=== PATIENT | female | born 1945 | race Caucasian/White ===

== ENCOUNTER 2018-03-10 18:11 | Inpatient (IN) | payer MEDICARE, OTHER ==
[2018-03-10 19:18] LABS: Hemoglobin 15.5 g/dL (12.0-16.0); Mean Corpuscular HGB CONC 34.5 g/dL (32.0-36.0); Mean Corpuscular Hemoglobin 32.3 pg (27.0-31.0); Mean Corpuscular Volume 93.6 fL (78.0-98.0); Mean Platelet Volume 6.9 fL (7.4-10.4); Platelet Count 414 thou/uL (130-400); RBC Distribution Width 13.1 % (11.5-14.5); Red Blood Cell (RBC) Count 4.82 mill/uL (4.20-5.40); White Blood Cell (WBC) Count 18.6 thou/uL (4.8-10.8)
[2018-03-10 19:28] LABS: ALT (SGPT) 26 U/L (8-55); AST (SGOT) 20 U/L (5-34); Albumin 4.1 g/dL (3.4-4.8); Alkaline Phosphatase 81 U/L (40-150); Anion Gap 15 mmol/L (10-20); BUN (Urea Nitrogen) 54 mg/dL (9.8-20.1); CK (CPK) 29 U/L (29-168); Calc. Creatinine Clearance 0 mL/min (70-130); Calcium 10.3 mg/dL (7.8-10.44); Carbon Dioxide 28 mmol/L (23-31); Chloride 96 mmol/L (98-107); Estimated GFR-MDRD 28; Globulin 2.7 g/dL (2.4-3.5); Glucose 164 mg/dL (80-115); Potassium 3.6 mmol/L (3.5-5.1); Protein, Total 6.8 g/dL (6.0-8.3); Sodium 135 mmol/L (136-145)
[2018-03-10 19:35] LABS: Band 3 % (5-11); CKMB 1.4 ng/mL (0-6.6); Lymphocytes 8 % (21-51); MDiff Complete? YES; Monocytes 7 % (0-10); Myelocyte 1 % (0-0); Neutrophil 78 % (42-75); PLT Morphology Comment Appears Increased; RBC Morphology Normal; Reactive Lymphocytes 3 % (0-10)
--- NOTE | 2018-03-10 20:50 | RAD ---
FRONTAL VIEW CHEST: 03/10/18 INDICATION: Syncope. FINDINGS: There is no evidence of consolidation, effusion or pneumothorax. The cardiac silhouette is accentuate d with portable technique. Mild vascular calcification present. IMPRESSION: No focal consolidation. POS: [facility]
--- NOTE | 2018-03-10 20:52 | CT ---
CT HEAD NONCONTRAST: 03/10/18 INDICATION: Altered mental status with dizziness. Reference made to 02/24/18 exam. FINDINGS: No intracranial hemorrhage, mass effect or midline shift. There is mild chronic microvascular ischemi c disease. There is a stable cavitary lucency of the posterior left subinsula indicating sequela from chronic lacunar infarction. Mild mucosal thickening of the paranasal sinuses is present. IMPRESSION: 1. No acute intracranial hemorrhage or mass effect. 2. Mild chronic microvascular ischemic disease. POS: [facility]
[2018-03-10] MEDS ORDERED: Enoxaparin Sodium 60 MG/0.6 ML SYRINGE ONE (22:11)
[2018-03-10] MEDS ORDERED: Diltiazem HCl 125 MG, Admixture Fee 1 EACH in Sodium Chloride 0.9% 100 ML IVPB SCH (22:15)
[2018-03-10 23:37] LABS: Troponin I 0.016 ng/mL (< 0.028)
[2018-03-11] MEDS ORDERED: Ondansetron ODT 4 MG TAB SL PRN (00:22)
[2018-03-11] MEDS ORDERED: Ondansetron HCl/PF 4 MG/2 ML Vial IVP PRN ×2 (00:22→05:29)
[2018-03-11] MEDS ORDERED: Acetaminophen 325 MG TAB PO PRN ×2 (00:22→05:29)
[2018-03-11 01:41] LABS: Troponin I 0.027 ng/mL (< 0.028)
[2018-03-11] MEDS ORDERED: Ondansetron ODT 4 MG TAB PO PRN (05:29)
[2018-03-11] MEDS ORDERED: Diltiazem 125 MG in Sodium Chloride 0.9% 100 ML IVPB SCH (05:30)
--- NOTE | 2018-03-11 06:00 | HP ---
PRIMARY CARE PHYSICIAN: Dr. Michelle Avendaño. CHIEF COMPLAINT: Dizziness. HISTORY OF PRESENT ILLNESS: Ms. Millan is a pleasant 72-year-old female who presents to the emergenc y room, complaining of dizziness. The patient says that it started about 2 weeks ago and it has been off and on. She says that she has fallen as a result of dizziness twice. She would feel dizzy and off balance as well. She denies having any chest pain or shortness of breath, but as a result of her concerns, she came to the emergency room for evaluation and in the ER, she was found to be in atrial fibrillation with rapid ventricular response and she is being admitted for further recommendations. The patient denies any chest pain, no shortness of breath, no PND, no orthopnea. The patient has no known history of any heart problems. REVIEW OF SYSTEMS: All systems were reviewed and are negative except for that mentioned in the histo ry of present illness. PAST MEDICAL HISTORY: Significant for restless leg syndrome, Alzheimer disease, and hypertension. PAST SURGICAL HISTORY: She has had a , cholecystectomy, appendectomy, and tonsillectomy. ALLERGIES: PENICILLIN. SOCIAL HISTORY: She is , has one son. She lost a daughter to cancer. She denies any alcohol use. She denies any smoking. CODE STATUS: FULL CODE. FAMILY HISTORY: Significant for Alzheimer's. MEDICATIONS: Include benazepril/hydrochlorothiazide 20/12.5 once a day, prednisone 20 mg twice a day , meclizine 12.5 mg daily, amitriptyline 2 tablets daily, and dapsone. PHYSICAL EXAMINATION: GENERAL: She is alert and oriented x4. She appears to be in no acute distress, well-developed and w ell-nourished. VITAL SIGNS: Blood pressure was 120/60, heart rate initially was in the 160s, respiratory rate of 16 . She is afebrile. HEENT: Her pupils are equal, round, and reactive. Extraocular muscles are intact. Her sclerae are anicteric. Throat: No erythema, no exudates. NECK: No adenopathy, no bruits. LUNGS: Clear to auscultation. There is no wheezing, no rales. CARDIOVASCULAR: Heart rate is irregular. It is still slightly rapid. There were no murmurs, clicks , no rubs. ABDOMEN: Soft, it is nontender, nondistended. Positive for bowel sounds. No rebound, no guarding. EXTREMITIES: There is no clubbing, cyanosis, no edema. NEUROLOGIC: The exam is nonfocal. LABORATORY AND X-RAY FINDINGS: EKG: Atrial fibrillation with rapid ventricular response. There are no ST wave changes. Her white blood cell count was 18.6, hemoglobin 15.5, hematocrit is 45.1, plate let count is 414,000. D-dimer was elevated at 0.83. Sodium 137, potassium 3.6, chloride is 96, CO2 is 28, BUN of 54, creatinine 1.79, glucose is 164. Troponins were less than 0.020. TSH was normal a t 0.80. She had a CT scan of the brain and showed no acute intracranial hemorrhage or mass effect, c hronic microvascular changes. Chest x-ray was normal. ASSESSMENT AND PLAN: 1. This is a pleasant 72-year-old female who presents with intermittent dizziness and was found to b e in atrial fibrillation with rapid ventricular response. The atrial fibrillation is likely the caus e of her dizziness. However, posterior circulation cerebrovascular insufficiency cannot be entirely ruled out. However, her creatinine is elevated and her GFR is only in the 20s, which will preclude d oing a CT angiogram. For the plan regarding the atrial fibrillation, we will continue digoxin as mary erated as her blood pressure dropped on Cardizem. Consider full anticoagulation, which will need to be renally dosed. We will get an echocardiogram and consult Cardiology for further recommendations. 2. For the dizziness, once again, this is likely related to the atrial fibrillation. CT angiogram i s unobtainable at this time due to her renal function. Therefore, if her symptoms continue an MRI of the brain could be done to rule out a posterior circulation stroke. 3. Hypertension. Currently her blood pressure is on the lower side; therefore, we will hold her usu al antihypertensive medications and follow the trend. 4. Further recommendations to follow.
[2018-03-11] MEDS: Aspirin 81 mg Enteric Coated Tablet PO SCH (08:41)
--- NOTE | 2018-03-11 10:04 | NM ---
RADIONUCLIDE VENTILATION PERFUSION LUNG SCAN: History: Syncope. FINDINGS: Ventilation images show good uptake or radiotracer throughout each lung with patchy areas of airtrapp ing on the delayed images. Perfusion images show a single small subsegmental defect projecting over t he superior segment left lower lobe. IMPRESSION: Exam remains low probability for clinically significant pulmonary embolus. POS: [facility]
[2018-03-11] MEDS ORDERED: Enoxaparin Sodium 60 MG/0.6 ML SYRINGE SC SCH ×2 (11:25→11:30)
[2018-03-11] MEDS ORDERED: Sodium Chloride 0.9% 1,000 ML IV SCH (14:00)
[2018-03-11] MEDS ORDERED: Digoxin 0.5 MG/2 ML AMP SLOW IVP SCH (14:00)
--- NOTE | 2018-03-11 14:26 | CON ---
DATE OF CONSULTATION: 03/11/[address] Karthikeyan Tate' full consultation for details. HISTORY OF PRESENT ILLNESS: Briefly, Ms. Millan is a very pleasant 72-year-old woman who recently pr esented with atrial fibrillation with RVR. Main complaint was dizziness. She had had several falls, but no loss of consciousness. No previous history of atrial fibrillation. No chest pain or pressur e noted. PHYSICAL EXAMINATION: CARDIAC: Tachycardia, irregularly irregular. EXTREMITIES: No significant edema. IMPRESSION: New onset atrial fibrillation. RECOMMENDATIONS: She is currently on Cardizem 5 mg IV. We will increase to 7.5 mg IV per hour. We will give a p.o. dose of Cardizem. We will hold diuretic therapy. We will give her 500 mL bolus of fluid over 2 hours and give IV digoxin. Plan is rate control at this point. Duration of atrial fibr illation is unknown. Continue with Lovenox for now. Once her rate is better controlled, we will the n switch over to a novel oral anticoagulation agent.
--- NOTE | 2018-03-11 14:56 | CON-2 ---
DATE OF CONSULTATION: 03/11/2018 REASON FOR CONSULTATION: Atrial fibrillation with rapid ventricular response. HISTORY OF PRESENT ILLNESS: This is a 72-year-old female with a past medical history of Alzheimer's disease, hypertension and restless legs syndrome who presents to the ER with complaint of dizziness. The patient endorses history of 2 weeks' worth of transient dizziness. The patient has fallen 2 times during that time course. She describes the dizziness as the room spinning around her. She has not lost consciousness. She has not blacked out. She has not hit her head at any point. She estimates that she has had approximately 5- 6 episodes of dizziness over the last 2 weeks. During these dizzy spells, she denies any chest pain, shortness of breath, diaphoresis, palpitation. While being worked up in the emergency room, she was found to be in atrial flutter and then subsequently in AFib RVR. She has no significant cardiac history. No prior history of any CHF, cardiomyopathy or arrhythmia. Upon evaluation on telemetry, the patient denies any chest pain, palpitations or weakness despite her heart rate being in the 140 beats per minute range. In the ER, the patient received a loading dose of diltiazem 20 mg IV push followed by diltiazem drip at 5 mg per hour. She was anticoagulated on Lovenox approximately 1 mg/kg. She was also given 1 liter saline bolus and aspirin 325 mg. PAST MEDICAL HISTORY: 1. Alzheimer's disease. 2. Hypertension. 3. Restless legs syndrome. PAST SURGICAL HISTORY: 1. x1. 2. Cholecystectomy. 3. Appendectomy. 4. Tonsillectomy. SOCIAL HISTORY: She denies any alcohol, drug or smoking. FAMILY HISTORY: Significant for Alzheimer's, but no heart disease. REVIEW OF SYSTEMS: General: Denies fever or chills. No fatigue. HEENT: Denies nasal congestion. Denies sore throat. Cardiovascular: Denies chest pain. Denies palpitations. Pulmonary: Denies shortness of breath. Denies cough. Gastrointestinal: Denies nausea, vomiting, diarrhea. Denied abdominal pain. Genitourinary: Denies dysuria. Denies urinary frequency. Musculoskeletal: Denies joint pain. Denies muscle weakness. Skin: Denies rashes. Denies lesions. Psychiatric: Denies anxiety. Denies depression. PHYSICAL EXAMINATION: VITAL SIGNS: Temperature 97.6 degrees Fahrenheit, pulse of 138, respirations of 16, O2 sat is 92% on room air and blood pressure is 93/54. GENERAL: She is alert and oriented x4, in no distress. HEENT: Pupils equal, round and reactive to light and accommodation. NECK: Supple without lymphadenopathy. LUNGS: Clear to auscultation bilaterally. CARDIOVASCULAR: Heart rate is irregularly irregular and fast. ABDOMEN: Soft, nontender to palpation. No masses or distension are felt. EXTREMITIES: Show no clubbing or cyanosis. NEUROLOGIC: Cranial nerves II-XII intact. Normal sensation and strength. SKIN: No rashes. No lesions. PSYCHIATRIC: Appropriate. LABORATORY DATA: Significant for hemoglobin 15.5, hematocrit 45.1, platelets of 414,000. D-dimer of 0.83. Sodium 135, potassium 3.6, BUN of 54, creatinine of 1.79, troponin of 0.02, followed by 0.016, followed by 0.027. TSH of 0.8. IMAGING: Chest x-ray done in ER shows no acute process. Brain CT done in the ER shows no acute intracranial hemorrhage or mass effect with mild microvascular ischemic disease. Radionuclide ventilation perfusion lung scan shows low probability for clinically significant pulmonary embolus. Initial EKG on presentation to ER shows atrial fibrillation with a rate of approximately 130. Followup EKG shows atrial fibrillation with RVR with rate of approximately 150. ASSESSMENT AND PLAN: This is a 72-year-old female with 2-week history of dizziness, was found to be in atrial fibrillation with rapid ventricular response with no prior history of arrhythmia. Atrial fibrillation with rapid ventricular response. The patient's blood pressure is unable to tolerate further titration of the Cardizem drip. She became hypotensive with increase to 10 mg per hour of Cardizem. At this time, we will bolus her 500 mL normal saline followed by 0.25 mg of IV digoxin. We will continue her Cardizem drip. The patient is completely asymptomatic despite her rapid ventricular rate. She is currently anticoagulated therapeutically with Lovenox. We will wait for the results from a transthoracic echocardiogram. Discussion will need to be had with family and the patient regarding anticoagulation preference with history of falls. It is likely that the falls are cardiogenic in nature, but we are not for sure at this time. We will reassess after the bolus and the digoxin has been given. Continue to monitor on tele. Cardiology will follow. This consultation has been discussed with Dr. Jean Aguilar. [facility] HOSPITALDonavan
[2018-03-11] MEDS: Diltiazem 125 MG in Sodium Chloride 0.9% 100 ML IVPB SCH (15:20)
[2018-03-11] MEDS ORDERED: Amitriptyline HCl 10 MG TAB PO SCH (20:45)
[2018-03-11] MEDS: Enoxaparin Sodium 60 MG/0.6 ML SYRINGE SC SCH (20:56)
[2018-03-11] MEDS: Rosuvastatin 20 MG TAB PO SCH (20:56)
[2018-03-12 05:22] LABS: #Eosinphils 0.1 thou/uL (0.0-0.7); #Lymphocytes 2.5 thou/uL (1.20-3.40); #Monocytes 1.2 thou/uL (0.11-0.59); #Neutrophils 13.2 thou/uL (1.40-6.50); %Basophils 0.2 % (0.0-1.0); %Eosinophils 0.6 % (0.0-10.0); %Lymphocytes 14.7 % (21.0-51.0); %Monocytes 6.7 % (0.0-10.0); %Neutrophils 77.8 % (42.0-75.0); Hemoglobin 14.9 g/dL (12.0-16.0); Mean Corpuscular HGB CONC 34.2 g/dL (32.0-36.0); Mean Corpuscular Hemoglobin 32.6 pg (27.0-31.0); Mean Corpuscular Volume 95.5 fL (78.0-98.0); Mean Platelet Volume 7.2 fL (7.4-10.4); Platelet Count 357 thou/uL (130-400); RBC Distribution Width 13.4 % (11.5-14.5); Red Blood Cell (RBC) Count 4.56 mill/uL (4.20-5.40)
[2018-03-12 05:51] LABS: Anion Gap 18 mmol/L (10-20); BUN (Urea Nitrogen) 46 mg/dL (9.8-20.1); Calc. Creatinine Clearance 53 mL/min (70-130); Calcium 8.6 mg/dL (7.8-10.44); Carbon Dioxide 14 mmol/L (23-31); Cardiac Risk 5.2 (Less than 4.5); Chloride 106 mmol/L (98-107); Cholesterol 177 mg/dl (< 200 Desired); Estimated GFR-MDRD 57; Glucose 117 mg/dL (80-115); HDL Cholesterol 34 mg/dL (>60 Neg Risk); LDL Cholesterol, Calculated 67 mg/dL; Potassium 3.6 mmol/L (3.5-5.1); Sodium 134 mmol/L (136-145); Triglycerides 379 mg/dL (Less than 150)
[2018-03-12] MEDS: Aspirin 81 mg Enteric Coated Tablet PO SCH (08:23)
[2018-03-12] MEDS: Enoxaparin Sodium 60 MG/0.6 ML SYRINGE SC SCH ×2 (08:23→21:08)
[2018-03-12] MEDS ORDERED: PROVENTIL INHALER 6.7 G (200 INHALATIONS) INH PRN (10:11)
[2018-03-12] MEDS ORDERED: Amitriptyline HCl 10 MG TAB PO PRN (10:11)
[2018-03-12] MEDS: Dronedarone HCl 400 MG TAB PO SCH (16:09)
[2018-03-12] MEDS: Rosuvastatin 20 MG TAB PO SCH (21:08)
[2018-03-12] MEDS: Diltiazem 125 MG in Sodium Chloride 0.9% 100 ML IVPB SCH (21:09)
[2018-03-13 07:32] LABS: #Basophils 0.1 thou/uL (0.0-0.2); #Lymphocytes 2.3 thou/uL (1.20-3.40); #Monocytes 1.1 thou/uL (0.11-0.59); #Neutrophils 16.1 thou/uL (1.40-6.50); %Basophils 0.5 % (0.0-1.0); %Eosinophils 0.2 % (0.0-10.0); %Lymphocytes 11.6 % (21.0-51.0); %Monocytes 5.4 % (0.0-10.0); %Neutrophils 82.3 % (42.0-75.0); Hemoglobin 14.4 g/dL (12.0-16.0); Mean Corpuscular HGB CONC 34.1 g/dL (32.0-36.0); Mean Corpuscular Hemoglobin 32.6 pg (27.0-31.0); Mean Corpuscular Volume 95.5 fL (78.0-98.0); Mean Platelet Volume 7.7 fL (7.4-10.4); Platelet Count 291 thou/uL (130-400); RBC Distribution Width 13.7 % (11.5-14.5); Red Blood Cell (RBC) Count 4.43 mill/uL (4.20-5.40); White Blood Cell (WBC) Count 19.6 thou/uL (4.8-10.8)
[2018-03-13 07:51] LABS: Anion Gap 17 mmol/L (10-20); BUN (Urea Nitrogen) 50 mg/dL (9.8-20.1); Calc. Creatinine Clearance 39 mL/min (70-130); Calcium 9.1 mg/dL (7.8-10.44); Carbon Dioxide 16 mmol/L (23-31); Chloride 107 mmol/L (98-107); Estimated GFR-MDRD 41; Glucose 120 mg/dL (80-115); Potassium 3.5 mmol/L (3.5-5.1); Sodium 136 mmol/L (136-145)
--- NOTE | 2018-03-13 08:07 | CON ---
DATE OF CONSULTATION: 03/12/2018 ELECTROPHYSIOLOGY CONSULTATION REQUESTING PHYSICIAN: Dr. Jean Aguilar REASON FOR CONSULTATION: Atrial fibrillation with RVR. HISTORY OF PRESENT ILLNESS: Ms. Millan is a 72-year-old woman with a history significant for Alzheim er's disease, hypertension, restless legs syndrome, who presented to the emergency room yesterday rep orting dizziness. She has had 2 weeks of intermittent dizziness and has had 2 falls during that time span. She does describe the dizziness as the room spinning sensation. She denies any true syncopal episodes of passing out. She denies any associated chest pain, pressure, shortness of breath, diaph oresis or heart racing and palpitations. When she presented to the emergency room, she was placed on monitor and was found to be in an atypical flutter. When she presented to the emergency room, she w as placed on telemetry and was found to be in atypical flutter with RVR with ventricular rate, averag ing 130 beats per minute. She received a loading dose to 20 mg IV diltiazem with initiation of low d ose drip at 5 mg per hour. She is receiving subcutaneous anticoagulation with a weight-based Lovenox . She is also on a full strength aspirin. Currently, Ms. Millan denies any heart racing, palpitations, chest pain, pressure, or does have some mild dizziness. PAST MEDICAL HISTORY: Alzheimer's disease, hypertension, and restless legs syndrome. PAST SURGICAL HISTORY: , cholecystectomy, appendectomy, and tonsillectomy. SOCIAL HISTORY: Negative for alcohol, drug or tobacco. FAMILY HISTORY: Positive for Alzheimer's. Negative for sudden cardiac or early onset of coron gaby artery disease to the best of her recollection. HOME MEDICATIONS: Xanax 0.25 mg p.o. b.i.d., meclizine 6.25 mg q.8 hours as needed, Lotensin 1 tab d aily, amitriptyline 10 mg p.o. at bedtime, dapsone 75 mg p.o. t.i.d., Proventil HFA 2 puffs p.o. as n eeded, and prednisone 20 mg p.o. b.i.d. PHYSICAL EXAMINATION: VITAL SIGNS: Most recent vital signs; 98.4, heart rate is 130, respirations 20, oxygen is 96% on shaun m air, blood pressure 118/69, oxygen is 95% on room air. GENERAL: The patient is alert and oriented, in no apparent distress. HEENT: Pupils are equal, round, reactive and accommodate to light. Sclerae are anicteric. NECK: Supple, without jugular venous distention. LUNGS: Clear to auscultation bilaterally. Heart rate is irregularly irregular and rapid. PMI is no ndisplaced. ABDOMEN: Soft, nontender, without palpable masses. Hepatojugular reflux is negative. EXTREMITIES: Warm and dry to touch without clubbing, cyanosis or edema. NEUROLOGIC: Exam is grossly intact and nonfocal. Gait was not assessed. LABORATORY DATA AND IMAGING DATA: Recent laboratory; WBC 17.0, hemoglobin 14.9, hematocrit 43.5, peri telet count is 357. Chemistry: Sodium 134, potassium 3.6, BUN is 46, creatinine 0.96. Liver enzyme s are within normal limits. TSH is 0.8. Telemetry and EKG; patient is in atypical atrial flutter with RVR. IMPRESSION: 1. Atrial flutter with rapid ventricular response. 2. Transient hypotension with low dose Cardizem for rate control. 3. Anticoagulation on Lovenox. 4. Elevated CHADS VASC score of 3 on the basis of female gender, advancing age and hypertension. Or al anticoagulation is indicated. 5. Recent falls with associated dizziness likely related to her RVR. RECOMMENDATIONS: Recommend starting Multaq for antiarrhythmic therapy and continue diltiazem for rat e control. Oral anticoagulation is indicated by her elevated CHADS VASC score and hopefully antiarrh ythmic therapy will prevent further RVR episodes which are likely the cause of her dizziness and subs equent falls. That being said, atrial fibrillation does not come without risks of bleeding complica tions. Recommend Eliquis 5 mg p.o. b.i.d. when is stopped. Ultimately, we will be scheduling Ms. Millan for an outpatient ablation on a complex day in the future. All questions were answe red. The patient voices understanding. Risks, benefits, and alternative treatments were discussed a s well. This consultation has been discussed with Dr. Aguilar.
[2018-03-13] MEDS: Dronedarone HCl 400 MG TAB PO SCH ×2 (09:17→17:27)
[2018-03-13] MEDS: Aspirin 81 mg Enteric Coated Tablet PO SCH (09:17)
[2018-03-13] MEDS: Enoxaparin Sodium 60 MG/0.6 ML SYRINGE SC SCH (09:23)
[2018-03-13] MEDS ORDERED: Iopamidol 370 76% 100 ML VIAL ONE (12:50)
[2018-03-13] MEDS ORDERED: ALPRAZolam 0.25 MG TAB PO PRN (14:44)
--- NOTE | 2018-03-13 14:55 | PRG ---
DATE OF SERVICE: 03/11/2018 SUBJECTIVE: The patient today feels quite well. She has no complaints. She has no symptoms at all from her persistent tachycardia. OBJECTIVE: VITAL SIGNS: Temperature is 98.5, pulse 132, respirations 17, O2 sat 95% on room air, and BP 103/60. GENERAL APPEARANCE: Age appropriate female who looks perfectly healthy. She is in no distress. HEENT: ROHIT. NECK: Supple and symmetric. HEART: Tachycardic but without murmur. LUNGS: Clear bilaterally. ABDOMEN: Soft, nontender. EXTREMITIES: Warm and dry. LABORATORY DATA: White count 17.0, hemoglobin 14.9, platelets 357,000. Sodium 134, potassium 3.6, c hloride 106, CO2 14, BUN 46, creatinine 0.96. Triglycerides were 379, cholesterol 177, LDL 67, HDL 3 4. IMPRESSION AND PLAN: 1. Atrial fibrillation with rapid ventricular response. The patient failed to respond to Cardizem a nd has had some issues with her blood pressure. She has required a fair amount of fluids to maintain the blood pressure. She has no evidence of volume overload. She has had digoxin added to the regim en and that did not change her rate at all. Subsequently, Dr. Knox has been consulted. He has added Multaq with anticipation of an outpatient ablation. Thus far, the patient remains persistently tach ycardic and fortunately is tolerating it amazingly well. I had a long conversation with the patient and her daughter regarding the scenario. 2. Leukocytosis. 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 3. Dizziness, likely related to atrial fibrillation with rapid ventricular response. 4. Hypertension, stable. 5. Mild dementia. The patient is enormously pleasant.
--- NOTE | 2018-03-13 15:01 | PRG ---
DATE OF SERVICE: 03/13/2018 SUBJECTIVE: The patient continues to feel perfectly well today. She continues to be fairly oblivious symptomatically to the tachycardia that persists. She has been made n.p.o. this morning for possible ablation and her only concern is that she is not able to eat. OBJECTIVE: VITAL SIGNS: Temperature is 98.3, pulse 130, respirations 18, O2 sat 94%. GENERAL APPEARANCE: Age appropriate female in no distress, awake, alert, pleasant. HEART: Tachycardic, sounds regular presently. LUNGS: Clear to auscultation bilaterally. ABDOMEN: Soft, nontender, nondistended, positive bowel sounds, no masses, no organomegaly. EXTREMITIES: Have no edema. IMPRESSION AND PLAN: 1. Atrial fibrillation, unresponsive to Cardizem, digoxin and so far Multaq. My understanding is the plan is to go forward with the ablation while she is here, we will defer to Cardiology and EP. 2. Leukocytosis without evidence of infection, likely due to oral steroids. 3. Mild dementia. Stable. Patient is very pleasant. 4. Hypertension. The patient has actually had her medications held primarily because of her relative hypotension with the calcium channel blockers. MTDD
[2018-03-13] MEDS ORDERED: Sodium Chloride 0.9% 500 ML IVPB SCH (15:30)
[2018-03-13] MEDS: Sodium Chloride 0.9% 1,000 ML IV SCH (15:40)
--- NOTE | 2018-03-13 16:23 | CT ---
CT ANGIOGRAM OF THE CHEST: 03/13/18 HISTORY: Possible right atrial mass noted on cardiac echo. COMPARISON: None. TECHNIQUE: CT angiogram of the chest is performed in the axial plane. Three dimensional reformatted images are s ubmitted for interpretation. FINDINGS: Trachea and central bronchi are patent. No suspicious masses or consolidation. No pleural effusion. N o pneumothorax. There are no lytic or blastic lesions in the osseous structures. There is no mediasti nal mass, lymphadenopathy, or hematoma. Heart size is within normal limits. No pericardial effusion. The thoracic aorta and upper abdominal aorta have an overall normal caliber. No periaortic fat strand ing. The visualized great vessels of the neck and upper abdominal mesenteric vessels are unremarkable . There is reflux of contrast into the inferior vena cava. There is a filling defect in the right atr ium, measuring 2.9 cm craniocaudal x 3.2 cm mediolateral x 3.8 cm anterior posterior. Given the abund ance of contrast in the right atrium, additional characterization of this filling defect cannot be ma de. Cardiac MRI may be beneficial. There is adequate contrast opacification of the pulmonary arterial system to the level of the segmental arteries. No filling defect to suggest thromboembolism. IMPRESSION: Filling defect in the right atrium. based on the current exam, it cannot be determined if this is a s olid neoplasm versus a thrombus. There is no evidence of a pulmonary artery embolism. There does appe ar to be a component of right heart failure with reflux of contrast into the inferior vena cava. POS: [facility]
[2018-03-13] MEDS ORDERED: Communication Order-Pharmacy FS ONE (16:56)
--- NOTE | 2018-03-13 17:05 | PQF ---
CLINICAL DOCUMENTATION IMPROVEMENT CLARIFICATION FORM: ICD-10 Updated PLEASE DO AN ADDENDUM TO THE PROGRESS NOTE WITH ANY DOCUMENTATION UPDATES OR ADDITIONS AND CARRY THROUGH TO DC SUMMARY. THANK YOU. DATE: 03/13/18; 03/14/18; 03/18/18 ATTN: Dr. Ceballos / DR. REINA Please exercise your independent, professional judgment in responding to the clarification form. Clinical indicators are provided on the bottom of this form for your review Please check appropriate box(s): [ ] Acute Renal Failure (ARF) / Acute Kidney Injury (GWENDOLYN) [ ] Acute on Chronic Renal Failure please specify Stage of CKD [ ] CKD without ARF/GWENDOLYN please specify Stage of CKD [ ] Other diagnosis [ x ] Unable to determine In addition, please specify: Present on Admission (POA): [ ] Yes [ ] No [ ] Unable to determine For continuity of documentation, please document condition throughout progress notes and discharge summary. Thank You. CLINICAL INDICATORS - SIGNS / SYMPTOMS/ LABS are present in the medical record: H&P: CREATININE 1.79 HER CREATININE IS ELEVATED AND HER GFR IS ONLY IN THE 20S 03/10 03/12 03/13 LABS: CREATININE 1.79 0.96 1.29 ESTIMATED GFR 28 57 41 RISKS: H&P 03/11: HX ALZHEIMER'S DISEASE. HTN. PN 03/13: ATRIAL FIBRILLATION. HYPERTENSION . PT HAS ACTUALLY HAD HER MEDICATIONS HELD PRIMARILY BECAUSE OF HER RELATIVE HYPOTENSION WITH THE CALCIUM CHANNEL BLOCKERS. TREATMENTS: ORDER: BMP 03/12. 03/13 CPOE 03/13: NS IV GIVE 500CC BOLUS THEN 150 ML / HR Thank you, Gina (This form is maintained as a part of the permanent medical record) 2015 [employer]. All Rights Reserved Gina Ramos RN, BSN [email or web address] Office: [phone] [facility]
[2018-03-13 17:58] LABS: Bilirubin Negative (Negative); Blood, Urine Negative (Negative); Clarity CLEAR (Clear); Glucose, Urine (Dipstick) Negative (Negative); Leukocyte Negative (Negative); Nitrite Negative (Negative); Protein, Urine (Dipstick) Negative (Neg-Trace); pH, Urine 5.5 (5.0-9.0)
[2018-03-13 18:01] LABS: Bacteria/HPF None Seen HPF (None Seen); Hyaline Casts/LPF 0-3 HYALINE CAST LPF (0-3 Hyaline); Pathc Cast-AUWi Flag 0.87 (0-2.49); RBC/HPF 0-3 HPF (0-3); Specific Gravity, Urine Greater than 1.060 (1.002-1.036); Squamous Epithelial 0-3 HPF (0-3)
--- NOTE | 2018-03-13 18:35 | PDOC.CTH ---
Cardiology Progress Note - Subjective EP progress note: Patient seen and evaluated. No new cardiac concerns or complaints. Continues to have occasional palpitations and shortness of breath. otherwise feels well despite heart racing. - Objective Vital Signs Temp Pulse Resp BP BP Pulse Ox 03/13/18 16:45 98.4 F 124 H 18 134/65 03/13/18 12:00 97.5 F L 97 18 120/84 97 03/13/18 08:02 97.2 F L 133 H 20 03/13/18 07:50 97.2 F L 133 H 20 109/72 95 Weight 135 lb 11.2 oz 03/12/18 03/13/18 03/14/18 06:59 06:59 06:59 Intake Total 1894.2 722 500 Balance 1894.2 722 500 - Physical Examination General/Neuro: alert & oriented x3, NAD Neck: carotid US brisk, no JVD present Lungs: CTA, unlabored respirations Abdomen: no HSM, NT/ND - Telemetry Telemetry Rhythm: SVT vs Atrial tach - Labs Result Diagrams: 03/13/18 07:13 03/13/18 07:13 Troponin/CKMB CK-MB (CK-2) 1.4 ng/mL (0-6.6) 03/10/18 18:54 Troponin I 0.027 ng/mL (< 0.028) 03/11/18 01:09 - Assessment/Plan 1. SVT (likely AVNRT or possibly atrial tachycardia). Not atrial flutter/fib. sustaining 125-130 2. Syncope and collapse- story seems to vary on this but today she does say she blacked out for 5 seconds, which is supported by family. 3. Transient hypotension with increased doses of diltiazem gtt. 4. 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 Normal LVEF >65% by TTE 03/12/18 Dr dickson reviewed TTE which showed severely abnormal findings. Theses were discussed with Dr. Aguilar. CT angio would be helpful for further evaluation but will be difficult with her tachycardia. Not an ablative candidate with right atrial mass. Continue medical management and rate control as tolerated. Can rediscuss ablation at a later date if intracardiac RA mass is resolved.
[2018-03-13] MEDS ORDERED: predniSONE 20 MG TAB PO SCH (21:00)
[2018-03-13] MEDS: Diltiazem 125 MG in Sodium Chloride 0.9% 100 ML IVPB SCH (21:09)
[2018-03-13] MEDS: Rosuvastatin 20 MG TAB PO SCH (21:11)
--- NOTE | 2018-03-13 21:45 | CON ---
DATE OF CONSULTATION: 03/13/2018 HISTORY OF PRESENT ILLNESS: A 72-year-old female admitted about 3 days ago for dizziness and atrial fibrillation with RVR and then supraventricular tachycardia. Her past medical history is negative fo r any cardiac disease, but she does have a history of hypertension. Since admission, she was noted t o have some renal insufficiency initially with a creatinine of 1.7 that has decreased some although s he did receive a contrast load today. She had a cardiac echo showing a 2.5 x 5 cm right atrial mass that was mobile and a subsequent CT scan of the chest and upper abdomen demonstrating the mass. The inferior vena cava did not appear to be involved with this mass and the upper portion of the kidneys was visualized as well as the left renal vein. The patient has had no indwelling central venous cath eters. She has had no recent hospitalizations. PAST SURGICAL HISTORY: Significant for cholecystectomy, appendectomy, and . PAST MEDICAL HISTORY: Otherwise significant for mucous membrane pemphigus about 1 month ago for whic h she was started on prednisone therapy with some improvement in her source and she continues to use the prednisone. She also has history of some dementia for which she has been taking some over the [facility] medicine for that. She has a history of restless leg syndrome. SOCIAL HISTORY: She has never smoked. She is , has one son. She is a nondrinker. She is ac companied by her sister and today. MEDICATIONS: At home include Xanax 0.25 b.i.d. p.r.n., meclizine p.r.n. dizziness, Lotensin HCTZ one tablet daily, Elavil 10 at bedtime, dapsone 75 mg t.i.d., prednisone 20 b.i.d. ALLERGIES: PENICILLIN. PHYSICAL EXAMINATION: GENERAL: Alert and cooperative lady with some memory deficit. She relies on her to answer s ome questions. VITAL SIGNS: Height 5 feet 1 inch, weight 135. NECK: No carotid bruits, no adenopathy. CARDIAC: Rapid heart rate. No murmurs. LUNGS: Clear to auscultation. ABDOMEN: Slightly protuberant, unable to palpate masses. EXTREMITIES: She has palpable femoral, popliteal, and dorsalis pedis pulses. She has some ankle bob ma, but no pretibial edema. Motor strength is intact throughout. 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 She has had a nuclear pulmonary scan does not suggest pulmona ry embolus. There is no evidence that this is a thrombus from a renal carcinoma since it is isolated to the right atrium with no thrombus extending into the vena cava. She has a remarkably little calc ium in her aortic and other major arterial branches with only minimal calcification seen in the right and LAD. Plan at this time is for resection of her myxoma and informed consent has been obtained fo r surgery tomorrow.
[2018-03-14] MEDS: Sodium Chloride 0.9% 1,000 ML IV SCH ×3 (00:23→12:19)
--- NOTE | 2018-03-14 06:24 | EKG ---
Test Reason : Blood Pressure : / mmHG Vent. Rate : 120 BPM Atrial Rate : 120 BPM P-R Int : 294 ms QRS Dur : 088 ms QT Int : 304 ms P-R-T Axes : 057 -25 248 degrees QTc Int : 429 ms Sinus tachycardia with 1st degree A-V block vs. A Flutter with 2:1 block Possible Left atrial enlargement Abnormal ECG When compared with ECG of 10-MAR-2018 21:35, (Unconfirmed) Sinus rhythm vs A flutter with 2:1 block has replaced Atrial fibrillation Minimal criteria for Anterior infarct are no longer Present Confirmed by BRUNO BURLESON ([id number]) on 03/14/2018 6:23:46 AM Referred By: KELLI Confirmed By:BRUNO BURLESON
[2018-03-14] MEDS ORDERED: Albumin 5% 500 ML ONE (06:27)
[2018-03-14] MEDS ORDERED: Fentanyl 250 MCG/5 ML VIAL ONE (06:36)
[2018-03-14] MEDS ORDERED: Phenylephrine HCL 10 MG/ML VIAL ONE (06:37)
[2018-03-14] MEDS ORDERED: Vecuronium 10 MG VIAL ONE ×2 (06:37→14:46)
[2018-03-14] MEDS ORDERED: Dexmedetomidine 200 MCG/2 ML VIAL ONE (06:37)
[2018-03-14] MEDS ORDERED: Midazolam HCl 5 mg/5 ml Vial ONE (06:37)
[2018-03-14] MEDS ORDERED: Heparin 10,000 UNITS/1 ML VIAL 30,000 UNITS in Sodium Chloride 0.9% 1,000 ML FS SCH (06:45)
[2018-03-14] MEDS ORDERED: Clindamycin/D5W 900 mg/50 ml Premix Bag ONE (07:24)
[2018-03-14] MEDS ORDERED: Levofloxacin 500 mg/D5W 100 ml Premix Bag ONE (07:24)
--- NOTE | 2018-03-14 08:49 | PRG ---
DATE OF SERVICE: 03/13/2018 HISTORY OF PRESENT ILLNESS: Ms. Millan symptomatically is doing well. No cardiac complaints. Blood pressure appears stable. Heart rate did decrease in the low 120s. She was seen and evaluated by Dr Sourav Rand who feels she does have atrial tachycardia versus SVT. She had an echo performed yesterday that showed a large right atrial mass of unknown etiology. Coral p is in progress. PHYSICAL EXAMINATION: VITAL SIGNS: Blood pressure 120/84, pulse 97, temperature 97.5. LUNGS: Clear to auscultation. CARDIOVASCULAR: Tachycardic, regular rate. ABDOMEN: Soft, nontender, nondistended. EXTREMITIES: No edema. ASSESSMENT AND PLAN: 1. Supraventricular tachycardia. 2. Presyncope. 3. Right atrial mass. RECOMMENDATIONS: I had a long discussion with Ms. Millan as well as her sister. Her was not present. I am concerned about this right atrial mass of unknown etiology. There is calcification p resent along the mass which may be consistent with a chronic mass or tumor. We will recommend a CT s can of her chest to assess for PE. May also consider lower extremity duplex. She has been covered w [employer] since her admission. At this point, we would defer EP study due to the mass. I have als o discussed case with Dr. Manas Tai who will assist in her care.
--- NOTE | 2018-03-14 11:02 | OP ---
DATE OF PROCEDURE: 03/14/2018 PREOPERATIVE DIAGNOSIS: Right atrial myxoma. POSTOPERATIVE DIAGNOSIS: Right atrial myxoma. PROCEDURE: Excision right atrial myxoma and patch right atrial septum with about a 2 square cm bovin e pericardial patch. SURGEON: Louis Tai M.D. SWINE EXTENSION FIELD SPECIALIST: Dr. Dany Fowler TRANSFUSION: Two units of packed red cells. PROCEDURE IN DETAIL: After adequate anesthesia had been obtained, the patient was prepped and draped . A triple lumen CVP was placed in the right femoral vein and the left common femoral vein was expos ed through a transverse incision while a median sternotomy was performed. After opening the sternum, the patient was heparinized, the aorta cannulated through 2 pursestring sutures and then a 24 venous cannula was placed up through the left femoral vein using a C-arm to ensure that it did not enter th e right atrium. Following completion of this, the superior vena cava was cannulated following which cardiopulmonary bypass was instituted. The aorta was cross-clamped and a liter of cold blood cardiop legic given through the aortic root. While this was being done, the right atrium was opened. A clam p had been placed across the inferior vena cava. Large myxoma was seen prolapsing into the right nile tricle. The tumor was enucleated out of the right ventricle and a 4 x 4 sponge was placed and the tr icuspid valve to prevent any embolic material from being removed. Following this, the left atrial my xoma was too large to work around and so it was amputated x2 to be able to visualize the broad based tumor at the septum. This was then excised with the septum, following which a running 4-0 Prolene balderas ture was used to secure a patch. Following this, a Valsalva maneuver demonstrated no leak around the patch. Atrium was closed with a double layer 5-0 Prolene suture. Following completion of this, the base of the left atrial appendage was oversewn. Following this, the cross-clamp was removed after d eairing maneuvers and the patient was fully rewarmed. Temporary atrial and ventricular pacing wires were placed and utilized initially. Cannulation sites were repaired after removal of the 3 cannulas. Following this, mediastinal drains x2 were placed and the sternum was reapproximated with #7 interr upted wire after protamine had been given. Subcutaneous tissue and skin were closed in layers using vancomycin paste on the sternal edges, platelet-enriched blood, and platelet-poor plasma.
[2018-03-14] MEDS ORDERED: Post-Op Insulin Drip Protocol IVPB ONE (11:49)
[2018-03-14] MEDS ORDERED: Fentanyl 100 MCG/2 ML VIAL SLOW IVP PRN ×2 (11:49)
[2018-03-14] MEDS ORDERED: Bisacodyl 5 MG TAB PO PRN (11:49)
[2018-03-14] MEDS ORDERED: Promethazine HCl 25 MG/ML VIAL IM PRN (11:49)
[2018-03-14] MEDS ORDERED: Hetastarch 6% 500 ML 500 ML IVPB PRN (11:49)
[2018-03-14] MEDS ORDERED: Bisacodyl 10 MG SUPP PR PRN (11:49)
[2018-03-14] MEDS ORDERED: Nitroglycerin 50 MG/250 ML BOT 250 ML IVPB PRN (11:49)
[2018-03-14] MEDS ORDERED: Mag-Al 1200 mg/1200 mg/30 ML UDCUP PO PRN (11:49)
[2018-03-14] MEDS ORDERED: Acetaminophen 325 MG TAB PO PRN (11:49)
[2018-03-14] MEDS ORDERED: hydrALAZINE 20 MG/ML VIAL SLOW IVP PRN (11:49)
[2018-03-14] MEDS ORDERED: DOPamine 400 MG/D5W 250 ML 250 ML IVPB PRN (11:49)
[2018-03-14] MEDS ORDERED: Ondansetron HCl/PF 4 MG/2 ML Vial IVP PRN (11:49)
[2018-03-14] MEDS ORDERED: Guaifenesin DM 100-10/5 ML UDCUP PO PRN (11:49)
[2018-03-14] MEDS ORDERED: HYDROcodone/Acetaminophen 5/325 mg Tablet PO PRN (11:49)
[2018-03-14] MEDS ORDERED: Phenylephrine 10 MG/NS 250 ML 250 ML IVPB PRN (11:49)
[2018-03-14 11:52] LABS: pH, Arterial 7.44 (7.35-7.45)
[2018-03-14 11:53] LABS: ALV-art Gradient 142.175 (0-20); Actual Bicarbonate (HCO3a) 14.9 mEq/L (22-28); Base Excess (BEa) -7.6 mEq/L (-2.0 to +3.0); CO2 Tension 22.5 mmHg (35.0-45.0); Calcium, Ionized 1.2 mmol/L (1.12-1.30); Carboxyhemoglobin (COHb) 1.2 gm% (0.0-3.0); Hemoglobin (Hb) 11.2 g/dL (12.0-16.0); O2 Tension (PaO2) 186.2 mmHg (> 70.0); Potassium - ABG Lab 3.6 mmol/L (3.70-5.30); Puncture Site ALINE
[2018-03-14] MEDS ORDERED: Dextrose 5% in Water 1,000 ML IV PRN (11:55)
[2018-03-14] MEDS ORDERED: Dextrose 50% Abboject 50 ML SYRINGE SLOW IVP PRN (11:55)
[2018-03-14] MEDS ORDERED: Insulin Regular 300 UNITS/3 ML VIAL SC PRN (11:55)
[2018-03-14 12:08] LABS: Anion Gap 14 mmol/L (10-20); BUN (Urea Nitrogen) 29 mg/dL (9.8-20.1); Calc. Creatinine Clearance 72 mL/min (70-130); Carbon Dioxide 16 mmol/L (23-31); Chloride 114 mmol/L (98-107); Estimated GFR-MDRD 81; Glucose 177 mg/dL (80-115); Potassium 3.9 mmol/L (3.5-5.1); Sodium 140 mmol/L (136-145)
[2018-03-14 12:16] LABS: Hemoglobin 10.5 g/dL (12.0-16.0); Mean Corpuscular HGB CONC 33.8 g/dL (32.0-36.0); Mean Corpuscular Hemoglobin 32.1 pg (27.0-31.0); Mean Corpuscular Volume 94.8 fL (78.0-98.0); Mean Platelet Volume 7.6 fL (7.4-10.4); Platelet Count 110 thou/uL (130-400); RBC Distribution Width 14.6 % (11.5-14.5); Red Blood Cell (RBC) Count 3.28 mill/uL (4.20-5.40); White Blood Cell (WBC) Count 22.6 thou/uL (4.8-10.8)
[2018-03-14] MEDS: Dronedarone HCl 400 MG TAB PO SCH (12:17)
[2018-03-14 12:18] LABS: INR-International Normal Ratio 1.5; PTT 33.3 SEC (22.9-36.1); Prothrombin Time 18.3 SEC (12.0-14.7)
[2018-03-14] MEDS: Hydrocortisone Sod Succ/PF 100 mg/2 ml Vial IVP SCH ×2 (12:20→20:11)
[2018-03-14 12:41] LABS: Band 18 % (5-11); Lymphocytes 8 % (21-51); MDiff Complete? YES; Metamyelocyte 1 % (0-0); Monocytes 2 % (0-10); Neutrophil 71 % (42-75); PLT Morphology Comment Appears Decreased; Polychromasia SLIGHT = 2-3 cells (100X) (0-2/hpf)
--- NOTE | 2018-03-14 13:26 | RAD ---
PORTABLE CHEST 1 VIEW: Date: 03/14/18 Time: 1131 hours HISTORY: Postop open heart surgery. FINDINGS/IMPRESSION: Comparison made with exam of 02/24/18. Interval changes of median sternotomy is seen. There is an endotracheal tube with tip below the level of the clavicular heads. Mediastinal drain is present. Heart size is borderline. No lobar consolidat ion, pneumothorax, or large effusions are seen. There is mild infiltrate in the right lower lobe. POS: [facility]
--- NOTE | 2018-03-14 13:53 | EKG ---
Test Reason : POST CABG Blood Pressure : / mmHG Vent. Rate : 063 BPM Atrial Rate : 063 BPM P-R Int : 268 ms QRS Dur : 096 ms QT Int : 470 ms P-R-T Axes : 024 -49 047 degrees QTc Int : 480 ms Sinus rhythm with 1st degree A-V block Left axis deviation Low voltage QRS Abnormal ECG When compared with ECG of 13-MAR-2018 13:33, Vent. rate has decreased BY 57 BPM T wave inversion no longer evident in Inferior leads T wave inversion no longer evident in Anterolateral leads Confirmed by BRUNO BURLESON ([id number]) on 03/14/2018 1:53:00 PM Referred By: MEET Confirmed By:BRUNO BURLESON
--- NOTE | 2018-03-14 14:04 | PDOC.CTH ---
Cardiology Progress Note - Subjective Pt intubated, sedated. HR appears to be fluctuating. Pacing is currently needed to increase BP - ROS not able to obtain ROS - Objective Vital Signs Temp Pulse Resp BP BP Pulse Ox 03/14/18 11:33 97 132/65 03/14/18 03:40 97.8 F 109 H 18 93/53 L 95 Weight 135 lb 11.2 oz 03/13/18 03/14/18 03/15/18 06:59 06:59 06:59 Intake Total 722 3092 Output Total 300 Balance 722 2792 - Physical Examination General/Neuro: NAD Neck: no JVD present Lungs: CTA, unlabored respirations Heart: RRR Abdomen: NT/ND, soft Extremities: + femoral B - Telemetry Telemetry Rhythm: SR - Labs Result Diagrams: 03/14/18 11:09 03/14/18 11:09 Troponin/CKMB CK-MB (CK-2) 1.4 ng/mL (0-6.6) 03/10/18 18:54 Troponin I 0.027 ng/mL (< 0.028) 03/11/18 01:09 - Assessment/Plan Atrial myxoma s/p resection aflutter Recent resection Myxoma likely causing dysrythmia rhythm now stable IVF and increase HR with pacing to 70BPM. Add dopamine if needed for BP sup[port in the perioperative period
[2018-03-14] MEDS: Clindamycin/D5W 900 MG in Premix Bag 1 BAG IVPB SCH ×2 (14:35→20:12)
[2018-03-14] MEDS ORDERED: Heparin 5,000 UNITS/ML VIAL ONE (14:46)
[2018-03-14] MEDS ORDERED: Nitroglycerin 50 MG/250 ML BOT ONE (14:46)
[2018-03-14] MEDS ORDERED: ePHEDrine/0.9% NaCl/PF SYRINGE 50 mg/10 ml ONE (14:46)
[2018-03-14] MEDS ORDERED: PROPOFOL 200 MG/20 ML VIAL ONE (14:46)
[2018-03-14] MEDS ORDERED: Magnesium 5 GM/10 ML VIAL ONE (14:46)
[2018-03-14] MEDS ORDERED: Heparin 30,000 units/30 ml VIAL ONE (14:46)
[2018-03-14] MEDS ORDERED: Aminocaproic Acid 5 GM/20 ML VIAL ONE (14:46)
[2018-03-14] MEDS ORDERED: Protamine Sulfate 250 MG/25 ML VIAL ONE (14:46)
[2018-03-14] MEDS ORDERED: Potassium Chloride 60 MEQ/30 ML VIAL ONE (14:46)
[2018-03-14] MEDS ORDERED: Lidocaine 1% PF 5 ML VIAL ONE (14:46)
[2018-03-14] MEDS ORDERED: Lidocaine 2% PF 100 mg/5 ml Syringe ONE (14:46)
[2018-03-14] MEDS ORDERED: Albumin 25% 25 GM/100 ML BOT ONE (14:46)
[2018-03-14] MEDS ORDERED: Calcium Chloride 1 GM/10 ML Abboject SYRINGE ONE (14:46)
[2018-03-14] MEDS ORDERED: Thrombin 5000 UNITS/5 ML VIAL ONE (14:46)
[2018-03-14] MEDS ORDERED: Hydrocortisone Sod Succ/PF 100 mg/2 ml Vial ONE (14:46)
[2018-03-14] MEDS ORDERED: Sodium Bicarb 50 MEQ/50 ML VIAL ONE (14:46)
[2018-03-14] MEDS ORDERED: Mannitol 12.5 GM/50 ML ONE (14:46)
--- NOTE | 2018-03-14 16:01 | PDOC.CTH ---
Cardiology Progress Note - Subjective EP progress note: Patient in ICU recovering from CVS to removed Myxoma. Still intubated and waking up from anesthesia. Cannot complete ROS. Family bedside. - Objective Vital Signs Temp Pulse BP 03/14/18 15:06 67 106/46 L 03/14/18 14:00 98.0 F 03/14/18 11:33 97 132/65 03/14/18 11:00 97.6 F Admit Weight 155 lb 6.814 oz Weight 135 lb 11.2 oz 03/13/18 03/14/18 03/15/18 06:59 06:59 06:59 Intake Total 722 3092 500 Output Total 300 700 Balance 722 2792 -200 - Physical Examination General/Neuro: other: (Sedated) Neck: carotid US brisk, no JVD present Lungs: other: (intubated. ) Heart: other: (temp pacer wires in place. HR variable) Abdomen: NT/ND, soft - Telemetry Telemetry Rhythm: NSR vs Paced - Labs Result Diagrams: 03/14/18 11:09 03/14/18 11:09 Troponin/CKMB CK-MB (CK-2) 1.4 ng/mL (0-6.6) 03/10/18 18:54 Troponin I 0.027 ng/mL (< 0.028) 03/11/18 01:09 - Assessment/Plan 1. SVT (likely AVNRT or possibly atrial tachycardia). will possibly be resolved with excision of the myxoma. HR intermittently elevated at 110-115 but is on dopamine currently to treat hypotension and mild bradycardia when she was brought to ICU post op with diltiazem gtt still infusing. Dilt gtt off now. 2. Syncope and collapse- story seems to vary on this but today she does say she blacked out for 5 seconds, which is supported by family. 3. Transient hypotension with increased doses of diltiazem gtt. 4. Right atrial myxoma found on TTE 03/12/18, removed by CV surgery today 5. Normal LVEF >65% by TTE 03/12/18 Will follow up on saturday.
[2018-03-14 17:04] LABS: Hemoglobin 11.2 g/dL (12.0-16.0)
[2018-03-14 17:24] LABS: Potassium 3.7 mmol/L (3.5-5.1)
[2018-03-14] MEDS: Potassium Chloride 20 MEQ/100 ML PREMIX BAG IVPB PRN (17:35)
--- NOTE | 2018-03-14 18:49 | CON ---
DATE OF CONSULTATION: 03/14/2018 SERVICE: Pulmonary Medicine. REASON FOR CONSULTATION: ICU patient. HISTORY OF PRESENT ILLNESS: Patient is a 72-year-old white female with past medical history significant for atrial myxoma that was recently discovered. She presented to the hospital with syncopal events. She continued to have these confusional spells. She had intermittent episodes of low blood pressure. Ultimately, an echocardiogram was done on the . It demonstrated findings consistent with an atrial myxoma. She underwent sternotomy with tracheotomy and an excision of this mass today. She denies any current chest pain. She is currently recovering from anesthesia. She is on mechanical ventilation and cannot provide me with additional elements of her presentation. PAST MEDICAL HISTORY: 1. Restless legs syndrome. 2. 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 3. Hypertension. 4. Atrial myxoma. PAST SURGICAL HISTORY: 1. section. 2. Cholecystectomy. 3. Appendectomy. 4. Tonsillectomy. 5. Sternotomy and atriotomy for myxoma excision. ALLERGIES: PENICILLIN. MEDICATIONS: Lists of her inpatient medications were reviewed. No specific updates were made at this time. FAMILY HISTORY: Noncontributory. SOCIAL HISTORY: She has a son. She does not use any alcohol, tobacco or illicit drugs. She has Alzheimer's. REVIEW OF SYSTEMS: General, head, ears, eyes, nose, throat, cardiovascular, respiratory, GI, , musculoskeletal, neurologic and skin is negative except as mentioned in the HPI. PHYSICAL EXAMINATION: VITAL SIGNS: Afebrile, pulse 117, blood pressure 110/57, respirations 12, saturation 99% on 37% FiO2 and a PEEP of 5. GENERAL: The patient is intubated and sedated. HEENT: Normocephalic, atraumatic. Sclerae are white, conjunctivae pink. Oral mucosa is moist without lesions. LUNGS: Decent air entry. No prolonged expiratory phase appreciated. HEART: Normal rate and regular. There is A wire, V wire, mediastinal drain, and chest tube in place. ABDOMEN: Soft, nontender and nondistended. Bowel sounds are positive. MUSCULOSKELETAL: No cyanosis or clubbing. There is no pitting in the bilateral lower extremities. NEUROLOGIC: Grossly nonfocal. LABORATORY DATA: WBC 22.6, immediately following her procedure. Hemoglobin 10.5, platelets 110. Band count 18%. INR 1.5, pH 7.44, pCO2 22 and pO2 186. Basic metabolic profile is essentially unremarkable except for bicarbonate of 16. Creatinine 0.71. Urinalysis is unremarkable. IMAGING DATA: 1. Chest x-ray demonstrates A wire and V-wire x2. There is a right mid lung zone infiltrate present. Endotracheal tube is roughly 2-3 cm above the rosario. I see a mediastinal drain. There is also a low lying left-sided chest tube. Lung volumes are low, accentuating in her intravascular markings. Sternotomy wires are new. 2. Echocardiogram demonstrates normal ejection fraction. Diastology could not be assessed secondary to tachycardia. There is a large right atrial mass of unknown etiology with some central calcifications. 3. CTA of the chest demonstrates right atrial filling defect. There is significant reflux of contrast into the inferior vena cava. The right ventricle ; however, appears to be underfilled. There are not elevated right-sided pressures because the left ventricle has normal contour. 4. V/Q scan demonstrates low probability study for pulmonary embolism. 5. CT of brain demonstrates no acute intracranial abnormality. ASSESSMENT: 1. Acute hypoxic respiratory failure. 2. Quadriplegia, immediately following atriotomy, requiring dopamine. 3. Atriotomy, postoperative day 0. 4. Right atrial mass, status post excision. 5. Syncope, resolved. DISCUSSION AND PLAN: We will hold sedation. When she wakes up, she will be placed on spontaneous breathing trial. I have already decreased her FIO2 and her respiratory rate to turn some work of breathing over to the patient. When she meets criteria, extubation will be considered. Pulmonary or Critical Care will continue to follow along in this location. Critical care time: 30 minutes. FAITH
[2018-03-14 19:00] LABS: Actual Bicarbonate (HCO3a) 16.9 mEq/L (22-28); Base Excess (BEa) -6.4 mEq/L (-2.0 to +3.0); CO2 Tension 27.1 mmHg (35.0-45.0); O2 Tension (PaO2) 99.4 mmHg (> 70.0); pH, Arterial 7.41 (7.35-7.45)
[2018-03-14 19:01] LABS: Calcium, Ionized 1.1 mmol/L (1.12-1.30); Carboxyhemoglobin (COHb) 0.7 gm% (0.0-3.0); Hemoglobin (Hb) 10.5 g/dL (12.0-16.0); Potassium - ABG Lab 3.9 mmol/L (3.70-5.30); Puncture Site LINE
[2018-03-14 19:02] LABS: ALV-art Gradient 57.885 (0-20)
[2018-03-14] MEDS ORDERED: Famotidine/PF 20 mg/2ml Vial SLOW IVP SCH (21:00)
--- NOTE | 2018-03-14 22:24 | PDOC.PN ---
- Subjective Encounter Start Date: 03/14/18 Encounter Start Time: 13:30 Intubated. - Objective Resuscitation Status: Resuscitation Status FULL:Full Resuscitation Vital Signs & Weight: Vital Signs (12 hours) Temp Pulse Resp BP Pulse Ox 03/14/18 18:00 14 03/14/18 16:15 97.8 F 03/14/18 16:00 10 L 03/14/18 15:06 67 106/46 L 03/14/18 14:00 98.0 F 10 L 03/14/18 11:33 97 132/65 03/14/18 11:00 97.6 F 63 12 100 Weight Admit Weight 155 lb 6.814 oz Weight 135 lb 11.2 oz Most Recent Monitor Data Heart Rate from ECG 72 NIBP 111/62 NIBP BP-Mean 80 Respiration from ECG 14 SpO2 94 I&O: 03/13/18 03/14/18 03/15/18 06:59 06:59 06:59 Intake Total 722 3092 956.7 Output Total 300 925 Balance 722 2792 31.7 Result Diagrams: 03/14/18 16:55 03/14/18 16:55 Additional Labs: Accuchecks 03/14/18 03/14/18 03/14/18 19:20 18:12 17:42 POC Glucose 113 H 107 107 03/14/18 03/14/18 03/14/18 16:15 15:20 14:15 POC Glucose 116 H 123 H 123 H 03/14/18 03/14/18 03/14/18 12:58 11:11 10:10 POC Glucose 153 H 188 H 171 H 03/14/18 03/14/18 03/14/18 09:29 09:01 08:30 POC Glucose 181 H 150 H 149 H 03/14/18 08:07 POC Glucose 148 H Phys Exam - Physical Examination Constitutional: NAD Intubated. Respiratory: no wheezing, no rales, no rhonchi Cardiovascular: RRR, no significant murmur Gastrointestinal: soft, non-tender, no distention, positive bowel sounds Musculoskeletal: no edema Dx/Plan (1) Right atrial mass Code(s): I51.9 - HEART DISEASE, UNSPECIFIED Status: Acute Comment: S/P excision. Post-op per CVS and P/CC. Drain in place. Intermittent tachycardia. (2) Atrial fibrillation Code(s): I48.91 - UNSPECIFIED ATRIAL FIBRILLATION Status: Acute (3) Dizziness Code(s): R42 - DIZZINESS AND GIDDINESS Status: Acute Comment: Secondary to afib and atrial mass trasversing valve. (4) Dementia Code(s): F03.90 - UNSPECIFIED DEMENTIA WITHOUT BEHAVIORAL DISTURBANCE Status: Acute - Plan * Continue post-op management per CVS, P/CC. Extubate when feasible.
[2018-03-15] MEDS: Sodium Chloride 0.9% 1,000 ML IV SCH (01:25)
[2018-03-15] MEDS: Clindamycin/D5W 900 MG in Premix Bag 1 BAG IVPB SCH ×2 (01:25→08:34)
[2018-03-15] MEDS: Hydrocortisone Sod Succ/PF 100 mg/2 ml Vial IVP SCH (03:57)
[2018-03-15 05:26] LABS: Anion Gap 7 mmol/L (10-20); BUN (Urea Nitrogen) 26 mg/dL (9.8-20.1); Calc. Creatinine Clearance 66 mL/min (70-130); Calcium 7.5 mg/dL (7.8-10.44); Carbon Dioxide 21 mmol/L (23-31); Chloride 118 mmol/L (98-107); Estimated GFR-MDRD 74; Glucose 124 mg/dL (80-115); Potassium 3.7 mmol/L (3.5-5.1); Sodium 142 mmol/L (136-145)
[2018-03-15 05:36] LABS: #Lymphocytes 0.5 thou/uL (1.20-3.40); #Monocytes 0.8 thou/uL (0.11-0.59); #Neutrophils 13.5 thou/uL (1.40-6.50); %Lymphocytes 3.2 % (21.0-51.0); %Monocytes 5.5 % (0.0-10.0); %Neutrophils 91.3 % (42.0-75.0); Hemoglobin 10.9 g/dL (12.0-16.0); Mean Corpuscular HGB CONC 33.6 g/dL (32.0-36.0); Mean Corpuscular Hemoglobin 31.6 pg (27.0-31.0); Mean Corpuscular Volume 94.1 fL (78.0-98.0); PLT Morphology Comment Appears Decreased; Platelet Count 115 thou/uL (130-400); RBC Distribution Width 15.5 % (11.5-14.5); Red Blood Cell (RBC) Count 3.46 mill/uL (4.20-5.40); White Blood Cell (WBC) Count 14.8 thou/uL (4.8-10.8)
[2018-03-15] MEDS: Potassium Chloride 20 MEQ/100 ML PREMIX BAG IVPB PRN (05:42)
[2018-03-15] MEDS ORDERED: Sodium Chloride 0.45% 1,000 ML IV SCH (08:30)
--- NOTE | 2018-03-15 08:59 | PDOC.CTH ---
Cardiology Progress Note - Subjective Doing well. BP stable. Could not use BB yesterday secondary to low BP - Objective Vital Signs Temp 03/15/18 04:00 97.9 F 03/15/18 00:00 98.2 F Admit Weight 155 lb 6.814 oz Weight 152 lb 12.485 oz 03/14/18 03/15/18 03/16/18 06:59 06:59 06:59 Intake Total 3092 2316.4 Output Total 300 1920 Balance 2792 396.4 - Physical Examination General/Neuro: alert & oriented x3, NAD Neck: carotid US brisk, no JVD present Lungs: CTA, unlabored respirations Heart: PMI normal, RRR Abdomen: NT/ND, soft Extremities: + femoral B - Labs Result Diagrams: 03/15/18 04:02 03/15/18 04:02 Troponin/CKMB CK-MB (CK-2) 1.4 ng/mL (0-6.6) 03/10/18 18:54 Troponin I 0.027 ng/mL (< 0.028) 03/11/18 01:09 - Assessment/Plan Atrial myxoma s/p resection aflutter hypotension improved Add low dose BB post op care Transfer to tele No further dysrythmias
[2018-03-15] MEDS ORDERED: Aspirin 325 MG TAB PO SCH (09:00)
[2018-03-15] MEDS ORDERED: Enoxaparin Sodium 30 MG/0.3 ML SYRINGE SC SCH (09:00)
--- NOTE | 2018-03-15 09:47 | RAD ---
AP VIEW CHEST: Date: 03/15/18 HISTORY: Open heart surgery. FINDINGS: Comparison made to previous exam from 03/14/18. AP view of chest demonstrates extubation of the patient. Sternotomy wires seen. There appears to be a mediastinal drain in place. Tiny bilateral pleural effusions seen. No evidence of pneumothorax seen. There may also be bibasilar areas of patchy density compatible with bibasilar atelectasis or subtle patchy areas of developing pn eumonia. IMPRESSION: 1. Interval extubation of the patient. 2. Bibasilar areas of patchy density most compatible with areas of atelectasis. POS: [facility]
--- NOTE | 2018-03-15 10:33 | PRG ---
DATE OF SERVICE: 03/15/2018 SERVICE: Pulmonary Medicine. INTERVAL HISTORY: The patient is doing fantastic. Yesterday, she tolerated extubation quite well. She got weaned off of the dopamine. She is no longer relying on her percutaneous pacing. Otherwise, there has been no interval change to her condition. PHYSICAL EXAMINATION: VITAL SIGNS: Afebrile, pulse 100, blood pressure 116/68, respirations 17, saturation 96% on 2 liters nasal cannula. GENERAL: Patient is awake, alert, no apparent distress. LUNGS: There is excellent air entry. I do not hear any wheezing or crackles present. HEART: Normal rate, regular. ABDOMEN: Soft, nontender, nondistended. Bowel sounds are positive. MUSCULOSKELETAL: No cyanosis or clubbing. There is no pitting in the bilateral lower extremities. NEUROLOGIC: Grossly nonfocal. LABORATORY DATA: WBC 14.8, hemoglobin 10.9 and roughly stable, platelets 115,000. Creatinine 0.77, anion gap 7, bicarbonate 21 and improving. Basic metabolic profile is otherwise unremarkable. Chlor flori is up trending to 118 and calcium 7.5. IMAGING DATA: Chest x-ray demonstrates improved aeration. There is a left pleural parenchymal opaci fication present. Sternotomy wires and percutaneous A wire and B wires are once again noted. Medias tinal drain remains in place. Today, I cannot see the chest tube on left. ASSESSMENT: 1. Acute hypoxic respiratory failure. 2. Atelectasis of the left lower lobe. 3. Atriotomy, postop day #1. 4. Right atrial mass, status post excision. 5. Syncope, resolved. DISCUSSION AND PLAN: The patient is doing wonderful in the perioperative period. We will continue o ur supportive care. We will work on mobilization through the day. Pulmonary will continue to follow while the patient remains in this location.
[2018-03-15] MEDS ORDERED: Bisacodyl 5 MG TAB PO PRN (11:06)
[2018-03-15] MEDS ORDERED: Mag-Al 1200 mg/1200 mg/30 ML UDCUP PO PRN (11:06)
[2018-03-15] MEDS ORDERED: Fentanyl 100 MCG/2 ML VIAL SLOW IVP PRN (11:06)
[2018-03-15] MEDS ORDERED: HYDROcodone/Acetaminophen 5/325 mg Tablet PO PRN (11:06)
[2018-03-15] MEDS ORDERED: Guaifenesin DM 100-10/5 ML UDCUP PO PRN (11:06)
[2018-03-15] MEDS ORDERED: Acetaminophen 325 MG TAB PO PRN (11:06)
[2018-03-15] MEDS ORDERED: Bisacodyl 10 MG SUPP PR PRN (11:06)
[2018-03-15] MEDS ORDERED: Mineral Oil ENEMA PR PRN (11:06)
[2018-03-15] MEDS ORDERED: Milk Of Magnesia 30 ML UDCUP PO PRN (11:06)
[2018-03-15] MEDS ORDERED: Nitroglycerin 0.4 MG TAB (25 Tab Bottle) SL PRN (11:06)
--- NOTE | 2018-03-15 14:02 | EKG ---
Test Reason : Blood Pressure : / mmHG Vent. Rate : 153 BPM Atrial Rate : 153 BPM P-R Int : 182 ms QRS Dur : 084 ms QT Int : 286 ms P-R-T Axes : 020 -35 193 degrees QTc Int : 456 ms Sinus tachycardia / Possible 2:1 Atrial flutter Left axis deviation Low voltage QRS Inferior infarct , age undetermined Cannot rule out Anterior infarct , age undetermined Abnormal ECG Confirmed by CHAIM MCGEE MD ([id number]), image editor MAR SUMMERS ([id number]) on 03/15/2018 2:02:37 PM Referred By: Confirmed By:CHAIM MCGEE MD
--- NOTE | 2018-03-15 14:03 | EKG ---
Test Reason : Blood Pressure : / mmHG Vent. Rate : 125 BPM Atrial Rate : 129 BPM P-R Int : 000 ms QRS Dur : 082 ms QT Int : 332 ms P-R-T Axes : 000 -17 -04 degrees QTc Int : 479 ms Atrial fibrillation with rapid ventricular response with premature ventricular or aberrantly conducte d complexes Low voltage QRS RSR' or QR pattern in V1 suggests right ventricular conduction delay Cannot rule out Anterior infarct , age undetermined Abnormal ECG Confirmed by ARELY MILNER, CHAIM ([id number]), commercial production editor MAR SUMMERS ([id number]) on 03/15/2018 2:03:14 PM Referred By: Confirmed By:CHAIM MCGEE MD
--- NOTE | 2018-03-15 15:46 | PDOC.PN ---
- Subjective Encounter Start Date: 03/15/18 Encounter Start Time: 09:00 Doing very well today. Minimal discomfort. No respiratory issues. - Objective Resuscitation Status: Resuscitation Status FULL:Full Resuscitation Vital Signs & Weight: Vital Signs (12 hours) Temp Pulse Resp Pulse Ox 03/15/18 08:00 98.5 F 87 18 95 03/15/18 04:00 97.9 F Weight Admit Weight 155 lb 6.814 oz Weight 152 lb 12.485 oz Most Recent Monitor Data Heart Rate from ECG 85 NIBP 109/58 NIBP BP-Mean 75 Respiration from ECG 15 SpO2 96 I&O: 03/14/18 03/15/18 03/16/18 06:59 06:59 06:59 Intake Total 3092 2316.4 781 Output Total 300 1920 360 Balance 2792 396.4 421 Result Diagrams: 03/15/18 04:02 03/15/18 04:02 Additional Labs: Accuchecks 03/15/18 03/15/18 03/15/18 08:11 06:27 05:50 POC Glucose 102 125 H 125 H 03/15/18 03/15/18 03/14/18 04:02 01:27 23:51 POC Glucose 121 H 101 93 03/14/18 03/14/18 03/14/18 23:09 20:57 19:20 POC Glucose 87 112 H 113 H 03/14/18 03/14/18 03/14/18 18:12 17:42 16:15 POC Glucose 107 107 116 H 03/14/18 15:20 POC Glucose 123 H Phys Exam - Physical Examination Constitutional: NAD Neck: no JVD, supple Respiratory: no wheezing, no rales, no rhonchi, clear to auscultation bilateral Cardiovascular: RRR, no significant murmur Gastrointestinal: soft, non-tender, no distention, positive bowel sounds Musculoskeletal: no edema Neurological: non-focal Dx/Plan (1) Right atrial mass Code(s): I51.9 - HEART DISEASE, UNSPECIFIED Status: Acute Comment: S/P excision. Post-op per CVS and P/CC. Drain in place. Intermittent tachycardia improved. (2) Atrial fibrillation Code(s): I48.91 - UNSPECIFIED ATRIAL FIBRILLATION Status: Acute Comment: NSR on Lopressor. (3) Dizziness Code(s): R42 - DIZZINESS AND GIDDINESS Status: Acute Comment: Secondary to afib and atrial mass trasversing valve. (4) Dementia Code(s): F03.90 - UNSPECIFIED DEMENTIA WITHOUT BEHAVIORAL DISTURBANCE Status: Acute Comment: Very mild. Normal conversation. - Plan * May be able to go to floor today.
[2018-03-15] MEDS: Metoprolol Tartrate 25 MG TAB PO SCH (20:10)
[2018-03-15] MEDS: Famotidine 20 MG TAB PO SCH (20:11)
[2018-03-16 06:07] LABS: Anion Gap 12 mmol/L (10-20); BUN (Urea Nitrogen) 26 mg/dL (9.8-20.1); Calc. Creatinine Clearance 74 mL/min (70-130); Calcium 8.3 mg/dL (7.8-10.44); Carbon Dioxide 17 mmol/L (23-31); Chloride 116 mmol/L (98-107); Estimated GFR-MDRD 74; Glucose 93 mg/dL (80-115); Sodium 141 mmol/L (136-145)
[2018-03-16] MEDS: predniSONE 5 MG TAB PO SCH (09:14)
[2018-03-16] MEDS: Aspirin 325 mg Enteric Coated Tablet PO SCH (09:14)
[2018-03-16] MEDS: Enoxaparin Sodium 30 MG/0.3 ML SYRINGE SC SCH (09:15)
[2018-03-16] MEDS: Famotidine 20 MG TAB PO SCH ×2 (09:15→21:56)
[2018-03-16] MEDS: Metoprolol Tartrate 25 MG TAB PO SCH ×2 (09:15→21:55)
[2018-03-16] MEDS ORDERED: Digoxin 0.5 MG/2 ML AMP SLOW IVP SCH ×2 (10:15→17:30)
--- NOTE | 2018-03-16 12:40 | PDOC.PN ---
- Subjective Encounter Start Date: 03/16/18 Encounter Start Time: 09:30 Doing very well overall. A little down today because she wants to be home. Minimal discomfort. - Objective Resuscitation Status: Resuscitation Status FULL:Full Resuscitation Vital Signs & Weight: Vital Signs (12 hours) Temp Pulse Pulse Pulse Resp BP BP 03/16/18 11:26 133 H 03/16/18 10:50 127 H 130 H 122/74 122/84 03/16/18 09:00 133 H 132 H 125/59 L 106/60 03/16/18 08:00 97.8 F 133 H 20 03/16/18 04:00 98.4 F 131 H 16 BP Pulse Ox Pulse Ox Pulse Ox 03/16/18 11:26 03/16/18 10:50 98 96 03/16/18 09:00 96 03/16/18 08:00 101/58 L 95 03/16/18 04:00 116/72 95 Weight Admit Weight 155 lb 6.814 oz Weight 152 lb 12.485 oz Most Recent Monitor Data Heart Rate from ECG 85 NIBP 109/58 NIBP BP-Mean 75 Respiration from ECG 15 SpO2 96 I&O: 03/15/18 03/16/18 03/17/18 06:59 06:59 06:59 Intake Total 2316.4 781 Output Total 1920 360 Balance 396.4 421 Result Diagrams: 03/15/18 04:02 03/16/18 05:03 Additional Labs: Accuchecks 03/16/18 03/16/18 03/15/18 11:00 05:42 21:12 POC Glucose 115 H 97 114 H Phys Exam - Physical Examination Constitutional: NAD Neck: no JVD Respiratory: no wheezing, no rales, no rhonchi, clear to auscultation bilateral Cardiovascular: RRR, no significant murmur Gastrointestinal: soft, non-tender, no distention, positive bowel sounds Musculoskeletal: no edema Psychiatric: normal affect Dx/Plan (1) Right atrial mass Code(s): I51.9 - HEART DISEASE, UNSPECIFIED Status: Acute Comment: S/P excision. Post-op per CVS and P/CC. Drain in place. Intermittent tachycardia improved. (2) Atrial fibrillation Code(s): I48.91 - UNSPECIFIED ATRIAL FIBRILLATION Status: Acute Comment: NSR on Lopressor. (3) Dizziness Code(s): R42 - DIZZINESS AND GIDDINESS Status: Acute Comment: Secondary to afib and atrial mass trasversing valve. (4) Dementia Code(s): F03.90 - UNSPECIFIED DEMENTIA WITHOUT BEHAVIORAL DISTURBANCE Status: Acute Comment: Very mild. Normal conversation. - Plan cont current plan of care CVS to manage drain. * .
[2018-03-16] MEDS ORDERED: Lorazepam 2 MG/ML VIAL SLOW IVP PRN (13:44)
[2018-03-16] MEDS ORDERED: Furosemide 40 MG/4 ML VIAL SLOW IVP SCH (17:00)
[2018-03-16] MEDS ORDERED: Amiodarone In Dextrose 200 ML IVPB SCH (17:00)
[2018-03-16] MEDS ORDERED: Amiodarone HCl 150 MG in Dextrose 5% in Water 100 ML IVPB SCH (17:00)
--- NOTE | 2018-03-16 17:04 | PRG ---
DATE OF SERVICE: 03/16/2018 SERVICE: Pulmonary Medicine. INTERVAL HISTORY: The patient is doing great from a respiratory standpoint. She is on room air. Danna egan denies any shortness of breath or chest pain. Otherwise, there has been no interval change to her condition. She once again asked me what the situation was. I explained to her what occurred. PHYSICAL EXAMINATION: VITAL SIGNS: Afebrile, pulse 133, blood pressure 125/59, respirations 20, saturation 95% on room air . GENERAL: The patient is awake, alert, in no apparent distress. LUNGS: Excellent air entry. There is no prolonged expiratory phase. Dependent crackles are present . No wheezing or rhonchi are appreciated. HEART: Tachycardic. Regular. ABDOMEN: Soft, nontender, nondistended. Bowel sounds are positive. MUSCULOSKELETAL: No cyanosis or clubbing. There is 2+ pitting in the bilateral lower extremities. NEUROLOGIC: Grossly nonfocal. LABORATORY DATA: WBC 14.8 and down trending, hemoglobin 10.9 and stable, platelets 115,000, reboundi ng. Creatinine 0.77, chloride 116. Basic metabolic profile is otherwise unremarkable. ASSESSMENT: 1. Acute hypoxic respiratory failure, resolved. 2. Atelectasis of the left lower lobe, likely resolved. 3. Atriotomy, postop day number 2. 4. Right atrial mass, status post excision. 5. Syncope, resolved. DISCUSSION AND PLAN: The patient is starting to have increasing dependent edema. I will provide 1 d ose of Lasix right now. At this point, the patient has no further requirements for inpatient Pulmona ry or Critical Care opinion and I will sign off. Please call with additional questions or concerns m oving forward.
[2018-03-16] MEDS: Amiodarone HCl 450 MG in Dextrose 5% in Water 250 ML IVPB SCH (19:09)
[2018-03-17] MEDS: Amiodarone HCl 450 MG in Dextrose 5% in Water 250 ML IVPB SCH ×2 (04:53→21:59)
[2018-03-17 07:10] LABS: #Eosinphils 0.1 thou/uL (0.0-0.7); #Lymphocytes 1.1 thou/uL (1.20-3.40); #Neutrophils 10.8 thou/uL (1.40-6.50); %Basophils 0.1 % (0.0-1.0); %Eosinophils 0.6 % (0.0-10.0); %Lymphocytes 8.4 % (21.0-51.0); %Monocytes 7.8 % (0.0-10.0); %Neutrophils 83.1 % (42.0-75.0); Hemoglobin 11.1 g/dL (12.0-16.0); Mean Corpuscular HGB CONC 33.4 g/dL (32.0-36.0); Mean Corpuscular Hemoglobin 31.5 pg (27.0-31.0); Mean Corpuscular Volume 94.3 fL (78.0-98.0); Mean Platelet Volume 8.5 fL (7.4-10.4); Platelet Count 125 thou/uL (130-400); Red Blood Cell (RBC) Count 3.51 mill/uL (4.20-5.40)
[2018-03-17 07:25] LABS: Chloride 112 mmol/L (98-107); Potassium 4.4 mmol/L (3.5-5.1); Sodium 139 mmol/L (136-145)
[2018-03-17 07:28] LABS: BUN (Urea Nitrogen) 23 mg/dL (9.8-20.1); Calc. Creatinine Clearance 72 mL/min (70-130); Calcium 7.6 mg/dL (7.8-10.44); Carbon Dioxide 18 mmol/L (23-31); Estimated GFR-MDRD 75; Glucose 96 mg/dL (80-115); Magnesium 1.8 mg/dL (1.6-2.6)
[2018-03-17 07:30] LABS: Anion Gap 13 mmol/L (10-20)
[2018-03-17] MEDS: Metoprolol Tartrate 25 MG TAB PO SCH ×2 (08:35→20:03)
[2018-03-17] MEDS: Enoxaparin Sodium 30 MG/0.3 ML SYRINGE SC SCH (08:35)
[2018-03-17] MEDS: Digoxin 0.125 MG TAB PO SCH (08:35)
[2018-03-17] MEDS: Aspirin 325 mg Enteric Coated Tablet PO SCH (08:36)
[2018-03-17] MEDS: Famotidine 20 MG TAB PO SCH ×2 (08:36→20:02)
[2018-03-17] MEDS: predniSONE 5 MG TAB PO SCH (08:36)
--- NOTE | 2018-03-17 09:31 | PDOC.PN ---
- Subjective Encounter Start Date: 03/17/18 Encounter Start Time: 09:29 Subjective: alert, doing well , no sob ,etc - Objective Resuscitation Status: Resuscitation Status FULL:Full Resuscitation MAR Reviewed: Yes Vital Signs & Weight: Vital Signs (12 hours) Temp Pulse Resp BP Pulse Ox 03/17/18 08:35 82 03/17/18 08:31 98.2 F 82 16 147/70 H 95 03/17/18 04:00 98.5 F 113 H 19 102/56 L 93 L 03/17/18 00:00 75 18 118/58 L Weight Admit Weight 155 lb 6.814 oz Weight 146 lb Most Recent Monitor Data Heart Rate from ECG 85 NIBP 109/58 NIBP BP-Mean 75 Respiration from ECG 15 SpO2 96 I&O: 03/16/18 03/17/18 03/18/18 06:59 06:59 06:59 Intake Total 781 447 Output Total 360 1050 Balance 421 -603 Result Diagrams: 03/17/18 07:00 03/17/18 05:01 Additional Labs: Accuchecks 03/17/18 03/16/18 03/16/18 05:38 21:01 16:55 POC Glucose 97 130 H 117 H 03/16/18 11:00 POC Glucose 115 H Phys Exam - Physical Examination Neck: no JVD Respiratory: clear to auscultation bilateral Cardiovascular: RRR, no significant murmur Gastrointestinal: soft, non-tender, positive bowel sounds Musculoskeletal: no edema Dx/Plan (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 - Plan on iv amiodarone, digoxin -: discuss with cardiology * .
--- NOTE | 2018-03-17 14:18 | PRG ---
DATE OF SERVICE: 03/17/2018 SUBJECTIVE: Ms. Millan seems to be doing fair. Continue rehabbing from her surgery. No dizziness, loss of consciousness is noted. OBJECTIVE DATA: VITAL SIGNS: Blood pressure is 142/58, heart rate 115, respirations 16, temperature 98.6 degrees Fah renheit. GENERAL: Alert and oriented woman in no apparent distress. NECK: Supple. Jugular veins not distended. CHEST: Coarse without crackles. CARDIOVASCULAR: Heart sounds are regular to rate and rhythm. No murmur or gallop. Midsternal scar is appreciated. ABDOMEN: Benign. Bowel sounds positive. EXTREMITIES: Lower extremities without edema, clubbing or cyanosis. DATABASE: The EKGs and telemetry strips reviewed revealing mostly sinus rhythm, alternating with run s of atrial tachycardia which seems to be initiated by P waves and terminates by QRS. The rates are about 9-130 beats per minute. LABORATORY DATA: White blood cell count 13, hemoglobin 11.1, platelet count is 125. Sodium 139, pot assium 4.4, BUN 23, creatinine 0.76. ASSESSMENT AND PLAN: Ms. Millan is a pleasant 72-year-old woman who had history of right atrial myxo ma, which underwent excision by Dr. Tai on 03/14/2018. She had preceding atrial tachyarrhythmia's as evaluated by Dr. Diamond. At this point due to the acute surgery, the plan is to continue medic al management. After the surgery the patient continues to have atrial tachyarrhythmia's versus SVT. At this point, amiodarone was used for suppression of the rhythm. Continue amiodarone as already initiated, could convert to p.o. regimen as soon as tomorrow. Once ra te control achieved can probably stop digoxin. At this point, we will continue only low dose Lovenox for anticoagulation. We will continue to follow with you.
--- NOTE | 2018-03-17 23:26 | PDOC.CTH ---
<Saniya Sosa - Last Filed: 03/17/18 23:24> Cardiology Progress Note - Subjective Patient without complaint. Seen 0830. Still in and out of flutter and asymptomatic. Rate up to 130. - Objective Vital Signs Temp Pulse Pulse Pulse Resp BP BP 03/17/18 20:00 97.8 F 83 20 03/17/18 16:45 98.7 F 96 16 03/17/18 13:59 91 83 134/63 139/65 03/17/18 11:30 98.6 F 97 16 BP BP Pulse Ox 03/17/18 20:00 107/52 L 92 L 03/17/18 16:45 132/65 97 03/17/18 13:59 03/17/18 11:30 108/73 98 Admit Weight 155 lb 6.814 oz Weight 146 lb 03/16/18 03/17/18 03/18/18 06:59 06:59 06:59 Intake Total 781 447 720 Output Total 360 1050 Balance 421 -603 720 - Physical Examination General/Neuro: alert & oriented x3 Lungs: CTA Heart: other: (Irr tachy) Abdomen: NT/ND Extremities: other: - Labs Result Diagrams: 03/17/18 07:00 03/17/18 05:01 Troponin/CKMB CK-MB (CK-2) 1.4 ng/mL (0-6.6) 03/10/18 18:54 Troponin I 0.027 ng/mL (< 0.028) 03/11/18 01:09 - Assessment/Plan 1. Atrial myxoma s/p removal 2. Atrial flutter 3. Dementia Now on Cardizem, Dig and Amio. Still breaking through with RVR. Not a candidate for ablation at this time due to recent surgery. Will ask EP to reevaluate. <Jean Aguilar - Last Filed: 03/18/18 06:24> Cardiology Progress Note - Objective Vital Signs Temp Pulse Resp BP Pulse Ox 03/18/18 04:00 98.1 F 107 H 20 111/76 93 L 03/18/18 00:00 109 H 20 123/69 03/17/18 20:00 97.8 F 83 20 107/52 L 92 L Admit Weight 155 lb 6.814 oz Weight 145 lb 11.2 oz 03/16/18 03/17/18 03/18/18 06:59 06:59 06:59 Intake Total 781 733 943 Output Total 360 1050 400 Balance 421 -603 543 - Labs Result Diagrams: 03/17/18 07:00 03/17/18 05:01 Troponin/CKMB CK-MB (CK-2) 1.4 ng/mL (0-6.6) 03/10/18 18:54 Troponin I 0.027 ng/mL (< 0.028) 03/11/18 01:09 - Assessment/Plan Seen and examined. Spoke with Dr. Knox. Request a consult to assist with rythm issues. Started amiodarone IV
[2018-03-18] MEDS ORDERED: Furosemide 20 MG TAB PO SCH (06:45)
[2018-03-18] MEDS: Famotidine 20 MG TAB PO SCH ×2 (09:28→21:07)
[2018-03-18] MEDS: predniSONE 5 MG TAB PO SCH (09:29)
[2018-03-18] MEDS: Digoxin 0.125 MG TAB PO SCH (09:29)
[2018-03-18] MEDS: Metoprolol Tartrate 25 MG TAB PO SCH ×2 (09:30→21:07)
[2018-03-18] MEDS: Aspirin 325 mg Enteric Coated Tablet PO SCH (09:30)
[2018-03-18] MEDS: Enoxaparin Sodium 30 MG/0.3 ML SYRINGE SC SCH (09:31)
[2018-03-18] MEDS ORDERED: Amiodarone 200 MG TAB PO SCH (10:45)
[2018-03-18] MEDS: Amiodarone HCl 450 MG in Dextrose 5% in Water 250 ML IVPB SCH (14:52)
--- NOTE | 2018-03-18 16:52 | PDOC.CTH ---
Cardiology Progress Note - Subjective Patient without complaint. No CP, palpitations. Pulse rate stable on IV Amio. - Objective Vital Signs Temp Pulse Pulse Pulse Resp BP BP 03/18/18 15:50 98.9 F 74 18 03/18/18 11:44 75 79 132/72 114/58 L 03/18/18 10:50 98.1 F 70 22 H 03/18/18 09:29 119 H 03/18/18 08:53 126 H 128 H 125/61 108/65 03/18/18 08:00 98.1 F 119 H 20 03/18/18 07:50 98.0 F 105 H 16 BP Pulse Ox 03/18/18 15:50 127/61 97 03/18/18 11:44 03/18/18 10:50 111/87 98 03/18/18 09:29 03/18/18 08:53 03/18/18 08:00 93 L 03/18/18 07:50 102/58 L 98 Admit Weight 155 lb 6.814 oz Weight 145 lb 11.2 oz 03/17/18 03/18/18 03/19/18 06:59 06:59 06:59 Intake Total 447 943 Output Total 1050 400 Balance -603 543 - Physical Examination General/Neuro: alert & oriented x3 Neck: no JVD present Lungs: CTA Heart: RRR Abdomen: NT/ND Extremities: other: (no edema) - Telemetry Telemetry Rhythm: AFl/SR - Labs Result Diagrams: 03/17/18 07:00 03/17/18 05:01 Troponin/CKMB CK-MB (CK-2) 1.4 ng/mL (0-6.6) 03/10/18 18:54 Troponin I 0.027 ng/mL (< 0.028) 03/11/18 01:09 - Assessment/Plan 1. AFlutter 2. atrial myxoma s/p repair 3. Dementia Continue IV Amio and start po today. Continue PT.
--- NOTE | 2018-03-18 18:12 | PDOC.CTH ---
Cardiology Progress Note - Objective Vital Signs Temp Pulse Pulse Pulse Resp BP BP 03/18/18 15:50 98.9 F 74 18 03/18/18 11:44 75 79 132/72 114/58 L 03/18/18 10:50 98.1 F 70 22 H 03/18/18 09:29 119 H 03/18/18 08:53 126 H 128 H 125/61 108/65 03/18/18 08:00 98.1 F 119 H 20 03/18/18 07:50 98.0 F 105 H 16 BP Pulse Ox 03/18/18 15:50 127/61 97 03/18/18 11:44 03/18/18 10:50 111/87 98 03/18/18 09:29 03/18/18 08:53 03/18/18 08:00 93 L 03/18/18 07:50 102/58 L 98 Admit Weight 155 lb 6.814 oz Weight 145 lb 11.2 oz 03/17/18 03/18/18 03/19/18 06:59 06:59 06:59 Intake Total 447 943 Output Total 1050 400 Balance -603 543 - Labs Result Diagrams: 03/17/18 07:00 03/17/18 05:01 Troponin/CKMB CK-MB (CK-2) 1.4 ng/mL (0-6.6) 03/10/18 18:54 Troponin I 0.027 ng/mL (< 0.028) 03/11/18 01:09 - Assessment/Plan 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 Now on amiodarone gtt and occasionally in NSR. Transitioning amio to 400mg po BID. Will stabilize rhythm with amio as she recovers from CV surgery. Plan for EPS and RFA as outpatient once recovered. 2. Syncope and collapse- story seems to vary on this but today she does say she blacked out for 5 seconds, which is supported by family. 3. Right atrial myxoma found on TTE 03/12/18, removed by CV surgery today 4. Normal LVEF >65% by TTE 03/12/18
[2018-03-18] MEDS: Amiodarone 200 MG TAB PO SCH (21:07)
[2018-03-19] MEDS: Amiodarone HCl 450 MG in Dextrose 5% in Water 250 ML IVPB SCH ×2 (05:07→21:12)
--- NOTE | 2018-03-19 08:46 | PDOC.PN ---
- Subjective Encounter Start Date: 03/19/18 Encounter Start Time: 08:44 Subjective: no chest pain, sob,etc - Objective Resuscitation Status: Resuscitation Status FULL:Full Resuscitation MAR Reviewed: Yes Vital Signs & Weight: Vital Signs (12 hours) Temp Pulse Resp BP Pulse Ox 03/19/18 04:00 98.9 F 106 H 16 103/64 94 L Weight Admit Weight 155 lb 6.814 oz Weight 144 lb 8 oz Most Recent Monitor Data Heart Rate from ECG 85 NIBP 109/58 NIBP BP-Mean 75 Respiration from ECG 15 SpO2 96 I&O: 03/18/18 03/19/18 03/20/18 06:59 06:59 06:59 Intake Total 943 1141 Output Total 400 400 Balance 543 741 Result Diagrams: 03/17/18 07:00 03/17/18 05:01 Phys Exam - Physical Examination Neck: no JVD Respiratory: clear to auscultation bilateral Cardiovascular: RRR, no significant murmur Gastrointestinal: soft, non-tender, positive bowel sounds Musculoskeletal: no edema, pulses present Dx/Plan (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 - Plan in RSR this am, on po and iv amiodarone -: discuss with cardiology, FU * .
[2018-03-19] MEDS: predniSONE 5 MG TAB PO SCH (09:11)
[2018-03-19] MEDS: Amiodarone 200 MG TAB PO SCH ×2 (09:12→21:13)
[2018-03-19] MEDS: Digoxin 0.125 MG TAB PO SCH (09:12)
[2018-03-19] MEDS: Aspirin 325 mg Enteric Coated Tablet PO SCH (09:12)
[2018-03-19] MEDS: Famotidine 20 MG TAB PO SCH ×2 (09:13→21:13)
[2018-03-19] MEDS: Enoxaparin Sodium 30 MG/0.3 ML SYRINGE SC SCH (09:13)
[2018-03-19] MEDS: Metoprolol Tartrate 25 MG TAB PO SCH (09:13)
--- NOTE | 2018-03-19 16:00 | PDOC.CTH ---
<Carole Mccoy - Last Filed: 03/19/18 15:56> Cardiology Progress Note - Subjective EP progress note: Patient seen and evaluated. No new cardiac concerns or complaints today. Denies heart racing, palpitations, chest pain/pressure, dizziness, or passing out. No stroke like symptoms. She is eager to go home. Minimal pain at sternal incision. up ambulating in room during exam - Objective Vital Signs Temp Pulse Pulse Pulse Resp BP BP 03/19/18 15:47 98.3 F 66 18 03/19/18 13:29 72 66 138/50 L 133/62 03/19/18 12:00 98.7 F 63 18 03/19/18 09:31 76 71 141/63 H 123/71 03/19/18 09:12 118 H 03/19/18 08:00 98.7 F 63 18 03/19/18 04:00 98.9 F 106 H 16 BP BP Pulse Ox 03/19/18 15:47 109/53 L 98 03/19/18 13:29 03/19/18 12:00 135/63 97 03/19/18 09:31 03/19/18 09:12 03/19/18 08:00 121/61 96 03/19/18 04:00 103/64 94 L Admit Weight 155 lb 6.814 oz Weight 144 lb 8 oz 03/18/18 03/19/18 03/20/18 06:59 06:59 06:59 Intake Total 943 1141 Output Total 400 400 Balance 543 741 - Physical Examination General/Neuro: alert & oriented x3, NAD Neck: carotid US brisk, no JVD present Lungs: unlabored respirations Heart: PMI normal Abdomen: no HSM, NT/ND, soft - Telemetry Telemetry Rhythm: NSR<--> Atrial tachycardia - Labs Result Diagrams: 03/17/18 07:00 03/17/18 05:01 Troponin/CKMB CK-MB (CK-2) 1.4 ng/mL (0-6.6) 03/10/18 18:54 Troponin I 0.027 ng/mL (< 0.028) 03/11/18 01:09 - Assessment/Plan 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 Now on amiodarone gtt as well as PO. Mostly in NSR but will kick back into atrial tach frequently with improved rate control. Will stabilize rhythm with amio as she recovers from CV surgery. Plan for EPS and RFA as outpatient once recovered. Stop amio gtt once bag from this AM is empty. Will increase Amiodarone 400mg TID starting tomorrow. 2. Syncope and collapse- story seems to vary on this but today she does say she blacked out for 5 seconds, which is supported by family. Consider linq ILR implant, which would also be helpful in tracking her atrial tachycardia. 3. Right atrial myxoma found on TTE 03/12/18, removed by CV surgery today 4. Normal LVEF >65% by TTE 03/12/18 <Umer Knox - Last Filed: 03/19/18 19:52> Cardiology Progress Note - Objective Vital Signs Temp Pulse Pulse Pulse Resp BP BP 03/19/18 15:47 98.3 F 66 18 03/19/18 13:29 72 66 138/50 L 133/62 03/19/18 12:00 98.7 F 63 18 03/19/18 09:31 76 71 141/63 H 123/71 03/19/18 09:12 118 H 03/19/18 08:00 98.7 F 63 18 BP BP Pulse Ox 03/19/18 15:47 109/53 L 98 03/19/18 13:29 03/19/18 12:00 135/63 97 03/19/18 09:31 03/19/18 09:12 03/19/18 08:00 121/61 96 Admit Weight 155 lb 6.814 oz Weight 144 lb 8 oz 03/18/18 03/19/18 03/20/18 06:59 06:59 06:59 Intake Total 943 1141 Output Total 400 400 Balance 543 741 - Labs Result Diagrams: 03/17/18 07:00 03/17/18 05:01 Troponin/CKMB CK-MB (CK-2) 1.4 ng/mL (0-6.6) 03/10/18 18:54 Troponin I 0.027 ng/mL (< 0.028) 03/11/18 01:09 Attending Addendum - Attending Addendum Date/Time: 03/19/181951 I personally evaluated the patient and discussed the management with Ms Mccoy. I agree with the History, Examination, Assessment and Plan documented above with any addition or exceptions noted below.
[2018-03-19] MEDS ORDERED: Metoprolol Tartrate 25 MG TAB PO SCH (21:00)
[2018-03-19] MEDS: Metoprolol Tartrate 50 MG TAB PO SCH (21:13)
[2018-03-20] MEDS: Aspirin 325 mg Enteric Coated Tablet PO SCH (08:22)
[2018-03-20] MEDS: predniSONE 5 MG TAB PO SCH (08:22)
[2018-03-20] MEDS: Famotidine 20 MG TAB PO SCH (08:22)
[2018-03-20] MEDS: Metoprolol Tartrate 50 MG TAB PO SCH (08:23)
[2018-03-20] MEDS: Amiodarone 200 MG TAB PO SCH (08:23)
[2018-03-20] MEDS: Digoxin 0.125 MG TAB PO SCH (08:23)
[2018-03-20] MEDS: Enoxaparin Sodium 30 MG/0.3 ML SYRINGE SC SCH (08:24)
[2018-03-20 13:02] VITALS: BMI 26.7
--- NOTE | 2018-03-20 14:01 | PDOC.PN ---
- Subjective Encounter Start Date: 03/20/18 Encounter Start Time: 13:59 Subjective: FINE, ready to go - Objective Resuscitation Status: Resuscitation Status FULL:Full Resuscitation MAR Reviewed: Yes Vital Signs & Weight: Vital Signs (12 hours) Temp Pulse Pulse Pulse Resp BP BP 03/20/18 11:15 97.6 F 57 L 18 03/20/18 09:37 64 55 L 118/56 L 129/62 03/20/18 08:23 66 03/20/18 07:25 98.5 F 66 19 03/20/18 03:40 98.7 F 61 16 BP BP Pulse Ox Pulse Ox Pulse Ox 03/20/18 11:15 119/58 L 96 03/20/18 09:37 98 98 03/20/18 08:23 03/20/18 07:25 119/65 96 03/20/18 03:40 129/61 95 Weight Admit Weight 135 lb 11.2 oz Weight 141 lb 11.2 oz Most Recent Monitor Data Heart Rate from ECG 85 NIBP 109/58 NIBP BP-Mean 75 Respiration from ECG 15 SpO2 96 I&O: 03/19/18 03/20/18 03/21/18 06:59 06:59 06:59 Intake Total 1141 283 Output Total 400 Balance 741 283 Result Diagrams: 03/17/18 07:00 03/17/18 05:01 Phys Exam - Physical Examination Neck: no JVD Respiratory: clear to auscultation bilateral Cardiovascular: RRR, no significant murmur Gastrointestinal: soft, positive bowel sounds Musculoskeletal: no edema Dx/Plan (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 - Plan stable on po meds -: amiodarone for atrial fib/flutter -: cont asa, digoxin, metoprolol -: DC per cardiology * .
--- NOTE | 2018-03-20 15:05 | PDOC.CTH ---
Cardiology Progress Note - Subjective Patient seen 0845. SBrady 50s. No complaints. Off IV Amio and on po Amio and Toprol. - Objective Vital Signs Temp Pulse Pulse Pulse Resp BP BP 03/20/18 13:38 69 63 153/68 H 131/60 03/20/18 11:15 97.6 F 57 L 18 03/20/18 09:37 64 55 L 118/56 L 129/62 03/20/18 08:23 66 03/20/18 07:25 98.5 F 66 19 03/20/18 03:40 98.7 F 61 16 BP BP Pulse Ox Pulse Ox Pulse Ox 03/20/18 13:38 98 98 03/20/18 11:15 119/58 L 96 03/20/18 09:37 98 98 03/20/18 08:23 03/20/18 07:25 119/65 96 03/20/18 03:40 129/61 95 Admit Weight 135 lb 11.2 oz Weight 141 lb 11.2 oz 03/19/18 03/20/18 03/21/18 06:59 06:59 06:59 Intake Total 1141 283 Output Total 400 Balance 741 283 - Physical Examination General/Neuro: alert & oriented x3 Lungs: CTA Heart: RRR Abdomen: NT/ND Extremities: other: (no edema) - Telemetry Telemetry Rhythm: SR/SB - Labs Result Diagrams: 03/17/18 07:00 03/17/18 05:01 Troponin/CKMB CK-MB (CK-2) 1.4 ng/mL (0-6.6) 03/10/18 18:54 Troponin I 0.027 ng/mL (< 0.028) 03/11/18 01:09 - Assessment/Plan 1. AVNRT 2. Atrial Myxoma s/p resection Overnight remains in sinus mary. Will sign off today and let EP manage rhythm. F/U for ablation as planned.
[2018-03-20 15:29] VITALS: BP 122/73; TEMP 99.3
--- NOTE | 2018-03-20 16:16 | DIS ---
DATE OF ADMISSION: 03/11/2018 DATE OF DISCHARGE: 03/20/2018 PRIMARY CARE PROVIDER: Michelle Avendaño M.D. DISCHARGE DISPOSITION: Home. FINAL DIAGNOSES: Status post resection, atrial myxoma, atrial fibrillation/flutter, hypertension. DISCHARGE MEDICATIONS: Amiodarone 200 mg 3 times a day and decreasing doses, aspirin 325 mg a day, m etoprolol 50 mg twice a day, prednisone 10 mg a day, albuterol HFA 2 puffs p.r.n., Elavil 10 mg at be dtime p.r.n., alprazolam 0.25 mg p.o. b.i.d. p.r.n. ALLERGIES: Allergic to PENICILLINS. CODE STATUS: FULL. PENDING AT THE TIME OF DISCHARGE: Nothing. DIET: Heart healthy. HOSPITAL COURSE: The patient admitted to [facility] through the [facility] with dizziness. She was found to have atrial fibrillation. A pulmon gaby perfusion scan was done on 03/11/2018 which showed there is a lung perfusion scan by nuclear medi cine showed low probability. She was treated with Cardizem for her atrial fibrillation. She was see n by Dr. Jean Aguilar. She was seen subsequently by Dr. Dago Diamond who recommended amiodaro ne. On 03/13/2018, CTA of the chest thorax revealed a defect in the right atrium. Subsequent echoca rdiogram revealed a large atrial myxoma. She was seen in consultation by Dr. Louis Tai. On 2017, she underwent excision of right atrial myxoma and patch over right atrial septum. Surgical pat hology revealed an atrial myxoma to no one's surprise. Patient continued to have atrial fibrillation . She was seen in consultation on 03/14/[address] David Chao because she came to the ICU unit on a ventilator. She was seen subsequently by Dr. Umer Knox of Electrophysiology who continued the amiodarone infusion. Eventually, digoxin and metoprolol were added. Finally, today after an extend ed period of time, her rhythm is stable in sinus rhythm, off of the IV amiodarone, etc. She is being discharged to follow up with Dr. Knox in 6 weeks on declining doses of prednisone. Specifically, 20 0 mg t.i.d. for 1 week, then 200 mg b.i.d. for 2 weeks, then 200 mg a day. She is to see Dr. Knox in 6 weeks. She will see Dr. Tai in follow up. She has been advised to see her primary care provide r in follow up in 1 week. Forty minutes was spent preparing discharge on this lady. Current prescriptions have been written.
--- NOTE | 2018-03-20 22:26 | PRG ---
DATE OF SERVICE: 03/20/2018 ELECTROPHYSIOLOGIC FOLLOWUP NOTE SUBJECTIVE: Ms. Millan seems to be doing much better, ambulating with assistance of PT without difficulty. OBJECTIVE: VITAL SIGNS: Blood pressure is 120/60, heart rate 57, respiration is 18, temperature 97.6 degrees Fahrenheit. GENERAL: Alert and oriented woman in no apparent distress. NECK: Supple. Jugular veins are distended. CHEST: Coarse without crackles. CARDIOVASCULAR: Heart sounds are regular to rate and rhythm. No murmur or gallop. ABDOMEN: Benign. Bowel sounds positive. EXTREMITIES: Lower extremities without edema, clubbing or cyanosis. DATABASE: The telemetry strips reviewed reveals mostly sinus rhythm, intermittent atrial tachyarrhythmia is still seen, but with a controlled rate. No severe bradycardia is noted, but heart rates in the 50s seen at times. ASSESSMENT AND PLAN: Ms. 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 She required IV amiodarone for suppression. Now seems to be achieving some reasonable control of the tachycardia as she is now over n.p.o. amiodarone 400 twice a day. At this point, I think it is reasonable to consider discharge. Tapering doses of the amiodarone is recommended possibly 2 mg 3 times a day for at least a week, then 2 mg twice a day and then eventually down to 200 mg daily for next 3 weeks. She needs to monitor her heart rates for excessive bradycardia. Outpatient followup in our office in 4-6 weeks. Long-term plans for ablation of the atrial arrhythmia could be made if recurrence seen at that time. [facility]
== END 2018-03-20 16:25 | disposition home or self-care (01) | DRG 228 ==
LOC: ERS 18:11 → 2NO 23:14 → SURG A 03-14 10:52 → CCU 03-14 11:06 → 2NO 03-15 13:46
PROVIDERS: ADMIT Internal Medicine; ATTEND Internal Medicine
PROC: 02B50ZZ Excision of Atrial Septum, Open Approach (ICD-10-PCS; principal; 2018-03-14)
PROC: 02U508Z Supplement Atrial Septum with Zooplastic Tissue, Open Approach (ICD-10-PCS; 2018-03-14)
PROC: 02L70ZK Occlusion of Left Atrial Appendage, Open Approach (ICD-10-PCS; 2018-03-14)
PROC: 5A1221Z Performance of Cardiac Output, Continuous (ICD-10-PCS; 2018-03-14)
DX: D15.1 Benign neoplasm of heart (principal); J96.01 Acute respiratory failure with hypoxia; J98.11 Atelectasis; I48.4 Atypical atrial flutter; I48.91 Unspecified atrial fibrillation; I10 Essential (primary) hypertension; G30.9 Alzheimer's disease, unspecified; F02.80 Dementia in other diseases classified elsewhere, unspecified severity, without behavioral disturbance, psychotic disturbance, mood disturbance, and anxiety; G25.81 Restless legs syndrome; Z88.0 Allergy status to penicillin; Z79.52 Long term (current) use of systemic steroids; Z79.899 Other long term (current) drug therapy
CPT/HCPCS: 36415; 36416; 36430; 70450; 71045; 71275; 76001; 78582; 80048; 80053; 80061; 81001; 82553; 82805; 83735; 84443; 84484; 85025; 85379; 85610; 85730; 86850; 86870; 86900; 86901; 86905; 86922; 88307; 93005; 93010; 93306; 93798; 94002; 94150; 96361; 96365; 96372; 96376; A9540; A9558; G8978-GP-CJ; G8979-GP-CJ; G8980-GP-CJ; G8987-GO-CI; G8988-GO-CI; G8989-GO-CI; J0282; J1160; J1265; J1642; J1644; J1650; J1720; J1815; J1940; J1956; J2001; J2060; J2150; J2250; J2270; J2370; J2405; J2704; J2720; J3010; J3370; J3475; J3480; J3490; J7050; J7070; J7506; P9016; P9045; P9047; Q0162; S0017; S0028

== ENCOUNTER 2018-03-31 23:17 | Inpatient (IN) | payer MEDICARE, OTHER ==
[2018-04-01 01:44] LABS: Troponin I 0.101 ng/mL (< 0.028)
[2018-04-01] MEDS ORDERED: ALPRAZolam 0.25 MG TAB PO PRN (03:15)
[2018-04-01] MEDS ORDERED: Ondansetron ODT 4 MG TAB PO PRN (03:16)
[2018-04-01] MEDS ORDERED: Acetaminophen 325 MG TAB PO PRN (03:16)
[2018-04-01] MEDS ORDERED: Atropine Sulfate 1 mg/1 ml Vial IVP PRN (03:25)
[2018-04-01 04:16] LABS: #Basophils 0.1 thou/uL (0.0-0.2); #Eosinphils 0.1 thou/uL (0.0-0.7); #Lymphocytes 1.2 thou/uL (1.20-3.40); #Monocytes 0.5 thou/uL (0.11-0.59); #Neutrophils 3.6 thou/uL (1.40-6.50); %Basophils 0.9 % (0.0-1.0); %Eosinophils 2.6 % (0.0-10.0); %Lymphocytes 22.4 % (21.0-51.0); %Monocytes 9.4 % (0.0-10.0); %Neutrophils 64.7 % (42.0-75.0); Hemoglobin 10.6 g/dL (12.0-16.0); Mean Corpuscular HGB CONC 34.5 g/dL (32.0-36.0); Mean Corpuscular Hemoglobin 32.7 pg (27.0-31.0); Mean Corpuscular Volume 94.8 fL (78.0-98.0); Mean Platelet Volume 6.6 fL (7.4-10.4); Platelet Count 168 thou/uL (130-400); RBC Distribution Width 14.9 % (11.5-14.5); Red Blood Cell (RBC) Count 3.24 mill/uL (4.20-5.40); White Blood Cell (WBC) Count 5.5 thou/uL (4.8-10.8)
[2018-04-01 04:32] VITALS: BMI 25.7
[2018-04-01 04:36] LABS: Anion Gap 15 mmol/L (10-20); BUN (Urea Nitrogen) 23 mg/dL (9.8-20.1); Calc. Creatinine Clearance 47 mL/min (70-130); Calcium 8.6 mg/dL (7.8-10.44); Carbon Dioxide 22 mmol/L (23-31); Chloride 107 mmol/L (98-107); Estimated GFR-MDRD 50; Glucose 79 mg/dL (80-115); Potassium 3.5 mmol/L (3.5-5.1); Sodium 140 mmol/L (136-145)
[2018-04-01] MEDS ORDERED: PROVENTIL INHALER 6.7 G (200 INHALATIONS) INH PRN (08:22)
[2018-04-01] MEDS: predniSONE 20 MG TAB PO SCH (08:42)
[2018-04-01] MEDS: rOPINIRole HCl 1 MG TAB PO SCH ×2 (08:44→20:09)
[2018-04-01] MEDS: Amiodarone 200 MG TAB PO SCH (08:44)
[2018-04-01] MEDS: Aspirin 325 mg Enteric Coated Tablet PO SCH (08:44)
[2018-04-01] MEDS ORDERED: Prevnar 13-Val Conj/PF 0.5 ML SYRINGE IM ONE (09:00)
--- NOTE | 2018-04-01 09:12 | RAD ---
LEFT FOOT THREE VIEWS: History: Pain after fall. Comparison: None. FINDINGS: Mild bone demineralization. Lisfranc alignment is maintained. No fracture. No cortical irregularity o r periosteal reaction. IMPRESSION: No fracture. POS: SO
--- NOTE | 2018-04-01 09:29 | HP ---
DATE OF ADMISSION: 04/01/2018 HISTORY OF PRESENT ILLNESS: The patient is a 72-year-old female who was recently discharged from [facility] facility where she had initially presented with some dizziness and was found to be in atrial fibril lation with a rapid ventricular response. The patient failed to respond to medical interventions and an echocardiogram revealed a large atrial myxoma. The patient subsequently underwent surgical excis ion. She did well postoperatively, but continued to have some supraventricular tachyarrhythmia's. Donavan Knox was consulted and the patient was started on amiodarone. She was also given beta blockade an d ultimately had reasonable rate control and was felt to be stable for discharge. Apparently, the pa georgette had been recommended to rehab, but had decline. The patient's extended family indicates that s he has not been eating quite as well, not been as active and that her mental status has been more pinky llenged since her surgery. The patient does have some underlying diagnosis of dementia. She was in that usual state yesterday when she decided to walk out in the rain to go to an out building near her home. She was subsequently found there by family members on the ground. They state that she was no t unconscious, but seemed to be "dazed" or "sleepwalking". They got her back into the house and then 2 hours later she was found by another friend who has found her down on her knees within the house. The patient's [id number]-gf-law who is the primary historical source at the moment indicates that t he patient revealed to them that she had fallen twice prior to these episodes, but had not revealed t hat to the family. The patient currently states she feels fine and has no recollection of these even ts. The patient was initially seen at the Emergency Department in [place]. The patient's monit or revealed a heart rate as low as 40 at one point. She did have a slightly elevated D-dimer as well . Her BNP was elevated at 1593.6 and her troponin was 0.114. She had a negative chest x-ray. CT sc an of the head which revealed some chronic changes. A CT of the C-spine and foot x-ray, all of which were unremarkable. The patient was subsequently transferred to this facility. REVIEW OF SYSTEMS: Negative. Again, the patient does have some underlying dementia and does not rec all events of yesterday, so it is unclear how accurate that is. PAST MEDICAL HISTORY: Notable for the above-mentioned recent atrial myxoma with supraventricular tac hyarrhythmia's. She has Alzheimer disease, restless leg syndrome, and hypertension. PAST SURGICAL HISTORY: , cholecystectomy, appendectomy, tonsillectomy, and excision of the atrial myxoma. FAMILY HISTORY: Notable for Alzheimer's. SOCIAL HISTORY: The patient is a nondrinker, nonsmoker, nondrug user. ALLERGIES: PENICILLIN. MEDICATIONS: Amiodarone 200 mg t.i.d., prednisone 10 mg every day, Lopressor 50 mg b.i.d., aspirin 325 every day, Elavil 10 mg at bedtime, Albuterol 2 puffs q.6 hours p.r.n., alprazolam 0.25 mg b.i.d . Naproxen PM 2 p.o. at bedtime, Ropinirole 1 mg b.i.d. and Vayacog capsules 1 p.o. daily. PHYSICAL EXAMINATION: VITAL SIGNS: Temperature is 97.8, pulse 48, respirations 18, O2 sats 96% on room air, BP is 131/58. GENERAL APPEARANCE: Age appropriate female. She is in no distress. She is asleep and easily awaken ed. She is pleasant and cooperative. HEENT: PERRL. No OP lesions. NECK: Supple and symmetric. CARDIOVASCULAR: Regular rate and rhythm without murmurs. LUNGS: Clear bilaterally. ABDOMEN: Soft, nontender, nondistended, positive bowel sounds, no masses, no organomegaly. SKIN: Warm and dry. MUSCULOSKELETAL: Reveals the healing midline sternal incision. NEUROLOGIC: The patient is awake and alert and appropriate and cooperative. Does have issues with r ecall. LABORATORY DATA: White count 5.5, hemoglobin 10.6, platelets 168. Chemistry is notable for CO2 of 2 2, BUN 23, creatinine is 1.09. Repeat troponin is 0.1. ASSESSMENT AND PLAN: 1. Falls. It is unclear if this patient truly had syncope or not. When she was found down, it soun ds like she had a couple of falls, but there is no evidence that she actually had any loss of conscio usness or true syncope. We will go ahead and consult Cardiology, CV Surgery and EP. We will keep he r on the general office dispatcher. We will obtain an echocardiogram and a CTA of the chest to rule out PE. I discussed briefly with Cardiology. We will hold her metoprolol and decrease the amiodarone to belen ly with the concerns for the possibility of symptomatic bradycardia. 2. Elevated troponin, likely residual from her previous surgery. 3. History of supraventricular tachyarrhythmia's including atrial flutter. As stated, we will hold the metoprolol and reduce the amiodarone. Consult EP. 4. Elevated D-dimer. This could well be related to her prior surgery. However, in the setting of p ossible syncopal episodes will go ahead and get a CTA of the chest. 5. Dementia. The patient has a history of underlying dementia and this is pretty well controlled at the moment, but it may be interfering impeding with the patient's ability to agree with rehab. We w ill reassess as needed. 6. Slightly altered mental status. Again, in the setting of the patient's dementia, it is unclear h ow much of this is just her dementia. We will go ahead and hold the naproxen PM as the diphenhydrami ne component could be clouding the picture a bit. 7. The patient is on prednisone. We will continue that for the moment.
--- NOTE | 2018-04-01 11:08 | CT ---
CTA THORAX WITH CONTRAST: (Computed Tomographic Angiography, chest(noncoronary) with contrast material, and image postprocessin g) (PE protocol) DATE: 04/01/18. HISTORY: A 72-year-old female with elevated D-dimer and syncopal episodes. TECHNIQUE: IV injection of iodinated contrast: 70 mL of Isovue 370. Scan acquisition timing attempted to coincide with iodinated contrast bolus reaching maximal density in pulmonary arteries. 3D MIP reconstructions. FINDINGS: There is no evidence of pulmonary thromboembolism. No thoracic aortic aneurysm or dissection. There is a small right pleural effusion and a tiny left pleural effusion. There is a patch of subsegmenta l atelectasis broadly abutting the right pleural effusion at the posterior basal segment of right low er lobe. No consolidation or pulmonary edema. No pneumothorax. No mediastinal or hilar lymphadenop athy. Trachea and major bronchi are patent and clear. There are sternotomy wires. IMPRESSION: 1. No pulmonary thromboembolism. 2. Small right pleural effusion and tiny left pleural effusion. natasha[] POS: SO
[2018-04-01] MEDS ORDERED: Iopamidol 370 76% 100 ML VIAL ONE (13:56)
--- NOTE | 2018-04-01 15:23 | CON ---
DATE OF CONSULTATION: 04/01/2018 REASON FOR CONSULTATION: Syncope. HISTORY OF PRESENT ILLNESS: Ms. Millan is a very pleasant 72-year-old who I saw and evaluated 2 week s ago. She initially presented with a right atrial myxoma. She underwent a surgical exploration wit h removal. She did have dysrhythmias noted before and after her surgery. This is felt to be due to inflammation in the previous right atrial myxoma. Her heart rate improved after being placed on amio darone therapy at 400 mg one p.o. q.a.m. She also placed on beta-scot treatment. She states she has had opted for a syncopal and near syncopal episodes noted over the last 2 weeks. None have been witnessed. She was seen and evaluated at a local emergency room where she was f ound to have a heart rate in the low 40s. PAST MEDICAL HISTORY: Mild dementia, previous atrial myxoma, restless legs syndrome, hypertension, S VT. PAST SURGICAL HISTORY: , cholecystectomy, appendectomy, tonsillectomy. ALLERGIES: PENICILLIN. HOME MEDICATIONS: Amiodarone 200 mg one p.o. t.i.d., prednisone, Lopressor, Elavil, albuterol, Napro syn, aspirin. REVIEW OF SYSTEMS: Ten point review of systems was reviewed as above, otherwise negative. PHYSICAL EXAMINATION: GENERAL: Patient is a pleasant female who is in no acute distress. The patient appears her stated a ge. VITAL SIGNS: Blood pressure 154/74, pulse 60, temperature 98.2. NEUROLOGIC: The patient is alert and oriented times 3 with no focal neurologic deficits. HEENT: Sclerae without icterus. Mouth has moist mucous membranes with normal pallor. NECK: No JVD. Carotid upstroke brisk. No bruits bilaterally. LUNGS: Clear to auscultation with unlabored respirations. BACK: No scoliosis or kyphosis. CARDIAC: Regular rate and rhythm with normal S1 and S2. No S3 or S4 noted. No significant rubs, mu rmurs, thrills, or gallops noted throughout the precordium. PMI is not displaced. There is no rober ternal heave. ABDOMEN: Soft, nontender, nondistended. No peritoneal signs present. No hepatosplenomegaly. No ab normal striae. EXTREMITIES: 2+ femoral and 2+ dorsalis pedis pulses. No cyanosis, clubbing, or edema. SKIN: No gross abnormalities. PERTINENT LABORATORY DATA: Hemoglobin 10.6, white blood cell count 5.5, creatinine 1.09. Peak tropo michael 0.101. IMPRESSION: Syncope. RECOMMENDATIONS: Likely related to bradycardia. She was on 600 mg of amiodarone therapy per day ___ __ dysrhythmia in addition to beta scot therapy. At this point, I recommend stopping beta scot therapy and continuing low dose amiodarone treatment at 200 mg one p.o. q.a.m. We would recommend m onitoring overnight. If stable, it would be okay from my standpoint to discharge home with a 3-week event recorder with close outpatient followup.
[2018-04-01] MEDS ORDERED: Amitriptyline HCl 10 MG TAB PO SCH (21:00)
[2018-04-02 06:21] LABS: #Eosinphils 0.1 thou/uL (0.0-0.7); #Lymphocytes 1.2 thou/uL (1.20-3.40); #Monocytes 0.4 thou/uL (0.11-0.59); #Neutrophils 4.5 thou/uL (1.40-6.50); %Basophils 0.4 % (0.0-1.0); %Eosinophils 1.2 % (0.0-10.0); %Lymphocytes 19.5 % (21.0-51.0); %Monocytes 7.1 % (0.0-10.0); %Neutrophils 71.8 % (42.0-75.0); Hemoglobin 11.6 g/dL (12.0-16.0); Mean Corpuscular HGB CONC 33.1 g/dL (32.0-36.0); Mean Corpuscular Volume 96.7 fL (78.0-98.0); Platelet Count 208 thou/uL (130-400); RBC Distribution Width 14.9 % (11.5-14.5); Red Blood Cell (RBC) Count 3.62 mill/uL (4.20-5.40); White Blood Cell (WBC) Count 6.2 thou/uL (4.8-10.8)
[2018-04-02 06:34] LABS: Anion Gap 13 mmol/L (10-20); BUN (Urea Nitrogen) 21 mg/dL (9.8-20.1); Calc. Creatinine Clearance 51 mL/min (70-130); Calcium 8.6 mg/dL (7.8-10.44); Carbon Dioxide 25 mmol/L (23-31); Chloride 106 mmol/L (98-107); Estimated GFR-MDRD 55; Glucose 79 mg/dL (80-115); Sodium 140 mmol/L (136-145)
[2018-04-02 07:06] LABS: Potassium 3.6 mmol/L (3.5-5.1)
[2018-04-02] MEDS ORDERED: Lidocaine 1% (PF) 30 ML VIAL ONE (07:27)
[2018-04-02] MEDS ORDERED: Iopamidol 370 76% 50 ML VIAL FS ONE (07:33)
[2018-04-02] MEDS ORDERED: Levofloxacin 500 mg/D5W 100 ml Premix Bag ONE (07:34)
[2018-04-02] MEDS ORDERED: Clindamycin/D5W 600 mg/50 ml Premix Bag ONE (07:34)
[2018-04-02] MEDS ORDERED: Midazolam HCl 2 mg/2 ml Vial ONE (08:28)
[2018-04-02] MEDS ORDERED: Fentanyl 100 MCG/2 ML VIAL ONE (08:28)
[2018-04-02] MEDS: rOPINIRole HCl 1 MG TAB PO SCH (09:44)
[2018-04-02] MEDS: Aspirin 325 mg Enteric Coated Tablet PO SCH (09:44)
[2018-04-02] MEDS: Amiodarone 200 MG TAB PO SCH (09:44)
[2018-04-02] MEDS: predniSONE 20 MG TAB PO SCH (09:44)
--- NOTE | 2018-04-02 11:02 | RAD ---
CHEST 1 VIEW: Date: 04/02/18 HISTORY: Chest pain. COMPARISON: Chest radiograph dated 03/31/18. FINDINGS: Mild blunting left lateral costophrenic sulcus. No pneumothorax. Cardiac silhouette and mediastinal c ontours are similar. IMPRESSION: No acute intrathoracic abnormality. POS: TPC
[2018-04-02 12:25] VITALS: TEMP 98.1
[2018-04-02] MEDS ORDERED: Clindamycin 150 MG CAP PO SCH (15:00)
[2018-04-02 16:08] VITALS: BP 145/61
--- NOTE | 2018-04-02 23:33 | DIS ---
DATE OF ADMISSION: 04/01/2018 DATE OF DISCHARGE: 04/02/2018 DISCHARGE DIAGNOSES: 1. Symptomatic bradycardia. 2. History of recent excision of right atrial myxoma. 3. History of recent atrial fibrillation. 4. Dementia. HISTORY OF PRESENT ILLNESS AND HOSPITAL COURSE: The patient is a 72-year-old female who was recently admitted here with atrial fibrillation/flutter with rapid ventricular response, which was highly res istant to medical intervention. Echo revealed a right atrial myxoma. The patient underwent surgical excision. Postoperatively, she did well except for supraventricular tachycardia is in atrial flutte r. She was ultimately sent home on amiodarone and metoprolol. The patient subsequently was found do wn a couple of times. She was not unconscious and was not clear exactly what the situation was, but she was taken to the emergency department where she had heart rate down as low as the 40s. Subsequen tly, she was transferred to this facility where she did have some heart rates in the 40s as well. Ca rdiology was consulted as well as etl informatica developer. Ultimately, the amiodarone dose was changed d own to 200 mg q. day and the beta scot was discontinued. Subsequently, Dr. Knox implanted a pacem mesha. The patient has done well post-procedure and per his notes, it is okay to go ahead and dischar ge the patient now. She does feel well post-procedure. PHYSICAL EXAMINATION: VITAL SIGNS: Temperature is 98.1, pulse 75, respirations 16, pulse 70, O2 sats 93%-98% on room air, blood pressure 136/60. GENERAL: She is awake and alert. She feels better than she has in a number of days. HEART: Regular, without murmurs. Left chest pacemaker site looks good with no significant ecchymose s. LUNGS: Clear bilaterally. ABDOMEN: Soft, nontender, nondistended. Bowel sounds are normal. DISPOSITION: The patient will be discharged to home. DISCHARGE MEDICATIONS: She will continue with her usual medications including Proventil HFA, Xanax 0 .25 b.i.d. p.r.n., amitriptyline 10 mg at bedtime, aspirin 325 q. day, prednisone 5 mg q. day, ropini role 1 mg p.o. b.i.d., naproxen, Aleve PM p.r.n. and Vayacog daily. Additionally, she will be on cli ndamycin 300 mg p.o. t.i.d., amiodarone 200 mg p.o. q. day. DISCHARGE INSTRUCTIONS: She is to follow up with Dr. Knox in week and she should follow up with Dr. Michelle Avendaño, her PCP within a week as well. The patient should return to the emergency department sh ould she have any problems prior to that time. Otherwise, her activity is restricted per her instruc tion sheet for post-pacemaker placement. She is to be on a heart healthy diet.
== END 2018-04-02 16:48 | disposition home or self-care (01) | DRG 244 ==
LOC: ERS 23:17 → 2NO 04-01 02:23
PROVIDERS: ADMIT Hospitalist; ATTEND Hospitalist
PROC: 0JH606Z Insertion of Pacemaker, Dual Chamber into Chest Subcutaneous Tissue and Fascia, Open Approach (ICD-10-PCS; principal; 2018-04-02)
PROC: 02H63JZ Insertion of Pacemaker Lead into Right Atrium, Percutaneous Approach (ICD-10-PCS; 2018-04-02)
PROC: 02HK3JZ Insertion of Pacemaker Lead into Right Ventricle, Percutaneous Approach (ICD-10-PCS; 2018-04-02)
DX: R00.1 Bradycardia, unspecified (principal); G30.9 Alzheimer's disease, unspecified; F02.80 Dementia in other diseases classified elsewhere, unspecified severity, without behavioral disturbance, psychotic disturbance, mood disturbance, and anxiety; G25.81 Restless legs syndrome; I10 Essential (primary) hypertension; Z88.0 Allergy status to penicillin; Z79.82 Long term (current) use of aspirin; Z79.52 Long term (current) use of systemic steroids; Z79.899 Other long term (current) drug therapy
CPT/HCPCS: 33249; 36415; 71045; 71275; 75820; 80048; 84443; 84484; 85025; 90471; 90670; 93005; 99152; 99153; A4216; C1785; C1898; G0009; J1956; J2001; J2250; J3010; J3490; J7506

== ENCOUNTER 2018-08-05 15:12 | Outpatient (CLI) | payer MEDICARE, OTHER ==
--- NOTE | 2018-08-05 18:14 | MRI ---
MRI OF BRAIN NONCONTRAST: 08/05/18 INDICATION: Mild cognitive impairment. FINDINGS: There is no evidence of acute territorial infarction, mass effect, or midline shift. Mild parenchymal atrophy with compensatory dilatation of the ventricular system present. There is mild chronic ischem ic disease of the cerebral white matter. There are a few scattered nonspecific punctate foci of susce ptibility bilaterally. IMPRESSION: 1. No acute intracranial abnormality. 2. Mild chronic ischemic disease. 3. A few scattered punctate foci of susceptibility nonspecific. Findings could relate to hemosid chrissy deposition or possibly sequela from amyloid angiopathy. POS: TPC
== END 2018-08-05 15:13 | disposition home or self-care (01) ==
LOC: MRI 15:12
PROVIDERS: ATTEND Psychiatry & Neurology Neurology
DX: G31.84 Mild cognitive impairment of uncertain or unknown etiology (principal); G93.89 Other specified disorders of brain
CPT/HCPCS: 70551

== ENCOUNTER 2019-01-12 23:19 | Inpatient (IN) | payer MEDICARE, OTHER ==
[2019-01-13 00:31] VITALS: BMI 27.5
[2019-01-13] MEDS ORDERED: Labetalol HCl 100 MG/20 ML VIAL SLOW IVP PRN (00:39)
[2019-01-13] MEDS ORDERED: Ondansetron PF 4 MG/2 ML Vial IVP PRN (00:39)
[2019-01-13] MEDS ORDERED: niCARdipine HCl 25 MG in Sodium Chloride 0.9% 250 ML 240 ML IVPB PRN (00:39)
[2019-01-13] MEDS ORDERED: Acetaminophen 325 MG TAB PO PRN ×2 (00:39→15:15)
[2019-01-13] MEDS ORDERED: Acetaminophen 650 MG in Premix Bag 1 BAG IVPB PRN (00:43)
[2019-01-13] MEDS ORDERED: Acetaminophen/Codeine 30-300mg Tablet PO PRN (00:45)
[2019-01-13] MEDS: Sodium Chloride 0.9% 1,000 ML IV SCH ×3 (01:46→17:59)
[2019-01-13 02:02] LABS: #Eosinphils 0.1 thou/uL (0.0-0.7); #Lymphocytes 1.4 thou/uL (1.20-3.40); #Monocytes 0.4 thou/uL (0.11-0.59); %Basophils 0.9 % (0.0-1.0); %Eosinophils 2.5 % (0.0-10.0); %Lymphocytes 28.1 % (21.0-51.0); %Monocytes 7.7 % (0.0-10.0); %Neutrophils 60.9 % (42.0-75.0); Hemoglobin 11.8 g/dL (12.0-16.0); Mean Corpuscular HGB CONC 34.7 g/dL (32.0-36.0); Mean Corpuscular Volume 92.2 fL (78.0-98.0); Mean Platelet Volume 6.8 fL (7.4-10.4); Platelet Count 164 thou/uL (130-400); RBC Distribution Width 11.1 % (11.5-14.5); Red Blood Cell (RBC) Count 3.69 mill/uL (4.20-5.40); White Blood Cell (WBC) Count 4.9 thou/uL (4.8-10.8)
[2019-01-13 02:12] LABS: PTT 28.7 SEC (22.9-36.1); Prothrombin Time 13.6 SEC (12.0-14.7)
[2019-01-13 02:20] LABS: Anion Gap 9 mmol/L (10-20); BUN (Urea Nitrogen) 28 mg/dL (9.8-20.1); Calc. Creatinine Clearance 57 mL/min (70-130); Calcium 9.4 mg/dL (7.8-10.44); Carbon Dioxide 27 mmol/L (23-31); Chloride 107 mmol/L (98-107); Estimated GFR-MDRD 59; Glucose 96 mg/dL (83-110); Potassium 3.5 mmol/L (3.5-5.1); Sodium 139 mmol/L (136-145)
--- NOTE | 2019-01-13 06:32 | CT ---
CT HEAD WITHOUT CONTRAST: INDICATIONS: Intracranial hemorrhage. Followup. COMPARISON: 03/31/2018 FINDINGS: There is a mixed density subdural hematoma overlying the left convexity, with hematocrit effect, darian cated by layering dependent increased density. A superimposed nondependent acute component is also d emonstrated, interspersed throughout the collection. Thickness measures up to approximately 2 cm. T here is associated sulcal effacement, mass effect, and rightward subfalcine herniation, which measure s 8 to 9 mm, at the level of the septum pellucidum. There is mild parenchymal volume loss and mild c hronic ischemic disease. IMPRESSION: Mixed density subdural hematoma overlying the left convexity, measuring up to 2 cm in thickness, with associated 8-9 mm rightward subfalcine herniation at the level of the septum pellucidum. Recommend closed continued imaging followup. POS: LILLY
[2019-01-13] MEDS ORDERED: Clindamycin/D5W 900 MG in Premix Bag 1 BAG IVPB SCH (08:00)
[2019-01-13] MEDS: Famotidine/PF 20 mg/2ml Vial SLOW IVP SCH ×2 (09:27→19:59)
--- NOTE | 2019-01-13 09:39 | CON ---
DATE OF CONSULTATION: HISTORY OF PRESENT ILLNESS: Arabella Millan is a 73-year-old female who was seen at the [facility] for a nontraumatic subdural hemorrhage. She was transferred here for higher level of care and is to undergo subdural gerald-hole evacuation sometime today. Pulmonary/Critical Care have been consulted while she is in the ICU. She is awake, alert, and responsive. She knows where she is. Recent extensive history is well outlined, which includes pertinent for dementia, cardiac arrhythmias, hypertension. No history of fall. PAST SURGICAL HISTORY: Otherwise included CABG, hysterectomy, sternotomy for atrial myxoma surgery, cardiac arrhythmias, appendix, tonsillectomy. PAST MEDICAL HISTORY: Hypertension, SVT, dementia, atrial myxoma, restless legs syndrome. MEDICINE: 1. Aricept 5 mg. 2. Ropinirole 1 mg at bedtime. 3. Amiodarone 100 once a day. 4. Trazodone 150. 5. Benazepril-hydrochlorothiazide 20-12.5 once a day. ALLERGIES: PENICILLIN. SOCIAL HISTORY: No alcohol or tobacco. REVIEW OF SYSTEMS: Otherwise unremarkable. PHYSICAL EXAMINATION: GENERAL: Awake, alert, responsive, moves all 4 extremities. VITAL SIGNS: Pulse 75, saturations are on room air, respiratory rate 26, blood pressure 135/77. CHEST: No wheezing, crackles. CARDIAC: Normal S1, S2. No gallops. ABDOMEN: No masses. LABORATORY DATA: Unremarkable. CT brain shows subdural hematoma, left convexity. IMPRESSION: 1. Acute nontraumatic left subdural. 2. Cardiac arrhythmias. 3. Dementia. 4. Previous atrial myxoma surgery. PLAN: Surgery as planned by Neurosurgery. Pulmonary/Critical Care will follow while in the ICU. We will notify Dr. Chao, who has seen her in the past. Consultation note, 70 minutes, 50% direct patient care. Job ID: [id number]
[2019-01-13] MEDS ORDERED: Bupivacaine HCl 0.5%/Epinephrine 1:200,000/PF 30 ml Vial ONE (10:39)
[2019-01-13] MEDS ORDERED: Lidocaine 0.5%/Epinephrine 1:200,000 50 ml Vial ONE (10:41)
[2019-01-13] MEDS ORDERED: Fentanyl 100 MCG/2 ML VIAL ONE ×3 (11:40→13:50)
[2019-01-13] MEDS ORDERED: Famotidine/PF 20 mg/2ml Vial ONE (11:40)
--- NOTE | 2019-01-13 12:07 | CON ---
DATE OF CONSULTATION: 01/13/2019 PRIMARY CARE PHYSICIAN: Michelle Avendaño MD CHIEF COMPLAINT: The patient is having memory loss and she is admitted for a subdural hematoma. HISTORY OF PRESENT ILLNESS: Ms. Millan is a pleasant 73-year-old female, who has a history of hypertension as well as SVT. She was admitted to our hospital back in March of last year, where she was discovered to have a right atrial myxoma, which has been excised. She was in her usual state of health until Saturday when they noticed that she was having difficulty finding her words. She also seemed to be frustrated as a result of that and this got progressively worse and her noticed that she could not remember things that are happening earlier in the day, and as a result, he brought her to the emergency room at the [facility]. There, they did a CT scan of her brain and found that she had a subdural hematoma, fairly large, at least 2 cm in diameter and was sent over to our facility for further treatment. During this time, she denied having any headaches or dizziness. No nausea. No vomiting. She denies feeling any lightheadedness. She also denies any weakness in her arms or legs. She does have some baseline dementia, and the plan was to see her neurologist the following day, but this obviously did not occur. She also is fairly active at home. She does not remember any trauma. She can climb a flight of steps, but it usually takes her some time and she does get some dyspnea. She also can walk about a block or so, but in general, she has not been extremely active in that regard. She denies any PND, no orthopnea, no lower extremity edema. She also denies any history of any heart disease. REVIEW OF SYSTEMS: CONSTITUTIONAL: There has been no fevers or chills. No night sweats. No weight loss. HEENT: No headache. No dizziness. No visual changes. No sore throat, rhinorrhea, neck pain. No adenopathy. PULMONARY: No hemoptysis. No cough. No wheezing. CARDIOVASCULAR: She denies any chest pain. No shortness of breath. No PND. No orthopnea. GASTROINTESTINAL: No abdominal pain. No nausea. No vomiting. No change in bowels. GENITOURINARY: No urinary frequency or hematuria. No hesitancy. NEUROLOGIC: As in history of present illness. She has not had any seizures. SKIN AND INTEGUMENT: No skin changes. No rash. ENDOCRINE: No heat or cold intolerance. PAST MEDICAL HISTORY: She has had a history of atrial myxoma, hypertension, SVT, dementia, and restless legs syndrome. PAST SURGICAL HISTORY: She has had , cholecystectomy, appendectomy, tonsillectomy, excision of the right atrial myxoma, and she has also had a pacemaker placed. ALLERGIES: PENICILLIN, THE REACTION OF WHICH IS UNKNOWN. SOCIAL HISTORY: She is a nonsmoker and nondrinker. She is . She would like to be a full code. Her is her surrogate decision maker. FAMILY HISTORY: Significant for Alzheimer disease and lung cancer in her father as well as a sister, but family states they were heavy smokers. CURRENT MEDICATIONS: Include, 1. Amiodarone 200 mg daily. 2. Trazodone 150 mg q.p.m. 3. Ropinirole 1 mg twice daily. 4. Aricept 5 mg daily. 5. Biotin 5000 mcg p.o. daily. 6. Benazepril-hydrochlorothiazide 20/12.5 one tablet daily. 7. Proventil inhaler 2 puffs as needed. PHYSICAL EXAMINATION: GENERAL: She is alert and oriented. She appears to be in no acute distress. She is well developed and well nourished. VITAL SIGNS: Blood pressure 133/58, heart rate 88, respiratory rate of 20, and temperature 98.5. HEENT: Her pupils are equal, round, and reactive. Extraocular muscles are intact. Sclerae anicteric. Throat, there is no erythema, no exudates. NECK: No adenopathy. No bruits. LUNGS: Clear to auscultation. There is no wheezing, no rales, no rhonchi. CARDIOVASCULAR: She has a normal S1 and S2. I do not appreciate an S3 or S4. No murmurs, clicks or rubs. ABDOMEN: Soft. It is nontender and nondistended. Positive for bowel sounds. There is no rebound, no guarding. EXTREMITIES: There is no edema. NEUROLOGICAL: Her cranial nerves 2 through 12 are grossly intact. Her muscle strength is 5/5 in her upper and lower extremities. She did have some difficulty with finger to nose, especially with the left hand. SKIN AND INTEGUMENT: There are no skin changes. No rash. LABORATORY RESULTS: CBC; the white blood cell count is 4.9, hemoglobin is 11.8, hematocrit is 34, platelet count is 164. INR is 1.0. Sodium is 139, potassium is 3.5, chloride is 107, CO2 is 27, BUN of 28, creatinine is 0.94, glucose is 96. IMAGING STUDIES: She had a CT scan of the brain showing a mixed density subdural hematoma on the left convexity, 2 cm in thickness. There was some associated subfalcine herniation at the level of the septum pellucidum. ASSESSMENT: This is a pleasant 73-year-old female, who is being admitted to the Neurosurgery Service due to a subacute left subdural hematoma. It appears the plan is for her to later go to have a gerald hole procedure done to remove further evacuation of the hematoma. This is a fairly an emergent surgery and she seems to have acceptable exercise tolerance, and that she is somewhat ambulatory at home. Her EKG was reviewed and there are no significant changes other than a paced rhythm, and she does not give any symptoms such as congestive heart failure or angina. 1. For hypertension, this will be managed depending on what her status is postoperatively. If she is able to take oral medication, then we will start her back on her usual medications with the exception of the hydrochlorothiazide and place her on p.r.n. hydralazine as needed, and we will avoid the hydrochlorothiazide due to potential shifts in serum sodium. 2. Dementia. We will continue Aricept once she is able to take p.o. and will be cautious for symptoms such as sundowning and delirium and further recommendations will depend on her clinical course. Job ID: [id number]
--- NOTE | 2019-01-13 12:15 | HP ---
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 They denied any trauma or fall. CT head was done on arrival, which was notable for a large left-sided acute on chronic subdural hematoma with mass effect and midline shift from left to right. The patient had a GCS of 14 in the ER and was otherwise neurologically intact. She did lose 1 point for confusion. Her platelets and coags were normal. Secondary to the patient's dementia, we are unsure of the exact medication list. However, the patient denies any anticoagulants. Her old medication list from March of 2018 does note of 325 mg aspirin daily. Neurosurgery was consulted for her newly found subdural hematoma. I presented to the [facility] ER, where she was initially presented for evaluation of this patient. We plan to admit to the ICU there for close monitoring, repeat a.m. CT scan, as well as likely need for surgical intervention in the near future. However, due to lack of ICU staffing, she [facility]. PAST MEDICAL HISTORY: Atrial myxoma, SVT, Alzheimer's disease, RLS, hypertension. PAST SURGICAL HISTORY: , cholecystectomy, appendectomy, tonsillectomy, excision of atrial myxoma. FAMILY HISTORY: Noncontributory. SOCIAL HISTORY: The patient does not smoke, drink, or use any drugs. ALLERGIES: PENICILLIN. REVIEW OF SYSTEMS: . PHYSICAL EXAMINATION: GENERAL: The patient is awake, alert, in no acute distress. GCS 14. HEENT: Head, normocephalic and atraumatic. Eyes, PERRLA. Extraocular movements intact. ENT, oral mucosa is pink, intact, and moist. The patient has normal voice. NECK: Nontender to palpation. Free active range of motion. No meningismus or nuchal rigidity. CARDIAC: Regular rate and rhythm. PULMONARY: Symmetric chest expansion. MUSCULOSKELETAL: Free active range of motion of all extremities. No focal motor weakness. NEURO: Oriented to person, but not place or time. This is slightly worse per her daughter. No additional focal neurologic deficits or weakness is appreciated. ASSESSMENT AND PLAN: This is a 73-year-old female with a known history of Alzheimer's dementia, who has had worsening confusion over the last few days and was brought to the [facility] and found to have a large left-sided acute on chronic subdural hematoma with mass effect and midline shift. She was transferred to the ICU at [facility] for further management. We will plan to monitor the patient closely in the ICU with q.2 neurochecks. She will not be given any anticoagulants. Head of the bed will be elevated to 30 degrees. The patient will be kept n.p.o. at this time as I anticipate the need for surgical intervention with gerald hole drainage in the near future. I have consulted the Hospitalist Service for assistance in medical management. I anticipate that patient will need inpatient rehabilitation at some point. Job ID: [id number]
[2019-01-13] MEDS ORDERED: Promethazine HCl 25 MG/ML VIAL SLOW IVP PRN (12:56)
[2019-01-13] MEDS ORDERED: Ondansetron HCl/PF 4 MG/2 ML Vial IVP PRN (12:56)
[2019-01-13] MEDS ORDERED: Promethazine HCl 25 MG/ML VIAL IM PRN (12:56)
--- NOTE | 2019-01-13 13:09 | PRG ---
DATE OF SERVICE: 01/13/2019 SUBJECTIVE: The patient is seen and examined. I agree with Lyn Alexander's evaluation, 01/12. The patient is a 73-year-old woman, who had a known trauma 1 month ago, but has had progressive cognitive decline with balance difficulties and mild somnolence for the past several days. She was brought in and evaluated, and a CT scan has revealed a large left chronic subdural hematoma with some acute components. IMPRESSION AND PLAN: This will require gerald hole drainage, and I discussed the indication risks, benefits, and alternatives of the procedure with the patient's daughter via telephone. She expressed understanding and wished to proceed. Job ID: [id number]
--- NOTE | 2019-01-13 13:22 | HP ---
HISTORY OF PRESENT ILLNESS: Ms. Millan is a 73-year-old white female, seen in Neurosurgical consultation. She was transferred from [facility]. She reported the last night with her daughter she has early-stage dementia and Alzheimer's. There was a questionable fall, that led to change in mentation. She was brought to the emergency room in [facility], evaluated by head CT noncontrast, that had a large left hemispheric subdural hematoma . There was some mass effect noted. The patient was then transferred to [facility] for Neurosurgical evaluation and treatment. As she comes in, she is moderately confused. She will interact though. I meet with her family. Dr. Rich reviewed the film, who felt the patient will do well with the gerald hole evacuation; hence, this was discussed with the family and the patient. They wished to proceed. ALLERGIES: PENICILLIN. PAST MEDICAL HISTORY: History of hypertension and Alzheimer's. MEDICATIONS: She is currently on: 1. Aricept. 2. Ropinirole. 3. Amiodarone. 4. Trazodone. 5. Benazepril/hydrochlorothiazide. PAST SURGICAL HISTORY: Hysterectomy and coronary artery bypass graft SOCIAL HISTORY: Lives with the family. REVIEW OF SYSTEMS: Difficult to ascertain secondary to confusion. PHYSICAL EXAMINATION: GENERAL: The patient is a well-nourished, developed, white female. She is moderately confused. She is otherwise awake and alert and does interact. I find no cranial nerve deficits. HEENT: Her extraocular movements are intact. Pupils are equal. CHEST: Shows good effort. HEART: Regular rhythm. NEUROLOGIC: As noted above, there is some questionable decrease in lateralization of the right. IMPRESSION: [id number] large subdural hematoma, left side. PLAN: The patient is going to the operating room currently to undergo gerald hole craniectomy for evacuation of subdural hematoma. Job ID: [id number]
[2019-01-13] MEDS ORDERED: Naloxone HCl 0.4 mg/ml Vial ONE (14:01)
[2019-01-13] MEDS ORDERED: Ondansetron PF 4 MG/2 ML Vial ONE (14:01)
[2019-01-13] MEDS ORDERED: Dexamethasone 20 MG/5 ML VIAL ONE (14:01)
[2019-01-13] MEDS ORDERED: PROPOFOL 200 MG/20 ML VIAL ONE (14:01)
[2019-01-13] MEDS ORDERED: Phenylephrine HCL 10 MG/ML VIAL ONE (14:01)
[2019-01-13] MEDS ORDERED: Metoclopramide HCl 10 MG/2 ML VIAL ONE (14:01)
[2019-01-13] MEDS ORDERED: Lidocaine 1% PF 5 ML VIAL ONE (14:01)
--- NOTE | 2019-01-13 14:56 | OP ---
DATE OF PROCEDURE: 01/13/2019 APPARATUS ENGINEERING TECHNOLOGIST: Laxmi. PROCEDURE: Left gerald holes for evacuation of subdural hematoma. DESCRIPTION OF PROCEDURE: The patient was brought to the operating room and intubated. She was positioned supine with head in modest extension on a gel-filled donut. Two incisions were made in the left lateral canthal line and gerald holes were placed in a standard fashion. The dura was coagulated and divided and aram subdural hematoma was evacuated. The subdural space was aspirated until clear. A drain was then left in the subdural space. The wounds were extensively irrigated and closed in anatomic layers. Job ID: [id number]
[2019-01-13] MEDS ORDERED: Acetaminophen 650 MG Suppository PR PRN (15:15)
[2019-01-13] MEDS ORDERED: Morphine 4 MG/ML VIAL SLOW IVP PRN (15:15)
[2019-01-13] MEDS ORDERED: Ondansetron PF 4 MG/2 ML Vial SLOW IVP PRN (15:15)
[2019-01-13] MEDS ORDERED: hydrALAZINE 20 MG/ML VIAL SLOW IVP PRN (15:15)
[2019-01-13] MEDS ORDERED: cloNIDine 0.1 MG TAB PO PRN (15:17)
[2019-01-13] MEDS ORDERED: Morphine 2 MG/ML SYRINGE SLOW IVP PRN (15:30)
[2019-01-13] MEDS: CEFAZOLIN 2 GM in Premix Bag 1 BAG IVPB SCH (19:58)
[2019-01-14] MEDS: CEFAZOLIN 2 GM in Premix Bag 1 BAG IVPB SCH (05:00)
[2019-01-14] MEDS: Sodium Chloride 0.9% 1,000 ML IV SCH (05:01)
[2019-01-14 05:28] LABS: Anion Gap 12 mmol/L (10-20); BUN (Urea Nitrogen) 22 mg/dL (9.8-20.1); Calc. Creatinine Clearance 63 mL/min (70-130); Calcium 9.1 mg/dL (7.8-10.44); Carbon Dioxide 23 mmol/L (23-31); Chloride 109 mmol/L (98-107); Estimated GFR-MDRD 65; Glucose 95 mg/dL (83-110); Potassium 3.7 mmol/L (3.5-5.1); Sodium 140 mmol/L (136-145)
--- NOTE | 2019-01-14 05:45 | PRG ---
DATE OF SERVICE: 01/14/2019 SUBJECTIVE: The patient is a 73-year-old female, recently found to have chronic subdural hematoma after few days of increasing confusion, who underwent left-sided bur holes for evacuation of subdural hematoma on 01/13/2019. She is postoperative day #1. Following the surgery, she was transitioned to the CCU, where she has been monitored closely with frequent neuro checks. She had a subdural DAVID drain placed intraoperatively, which had 30 mL of drainage overnight. She had a repeat CT head this morning which shows significant improvement with decreased subdural blood in resolution of midline shift. The patient has no complaints this morning at the bedside. She is more alert and interactive. She was oriented to person, place, and time. She has not required any Cardene for blood pressure and otherwise has remained stable in the ICU. OBJECTIVE: On exam this morning, the patient is awake, alert, oriented to person, place, and time. Pupils were equal and reactive to light. Extraocular movements are intact. No focal neurologic deficits are appreciated. Incisions are dry and intact. She has a small amount of left-sided facial swelling. PLAN: We will plan to remove the subdural DAVID drain and discontinue IV antibiotics. We will plan to transition the patient to the floor today, and I anticipate home versus rehab in the next 1 to 2 days. Job ID: [id number]
--- NOTE | 2019-01-14 06:38 | CT ---
CT HEAD WITHOUT CONTRAST: CLINICAL HISTORY: Intracranial hemorrhage. Postoperative followup. FINDINGS: There has been interval partial evacuation of the previously documented mixed density subdural hemorr ashley overlying the left convexity, with two bur holes performed within the left frontoparietal calvar ium, with overlying skin priti. An indwelling subdural drainage catheter traverses the more cryptographic technician ior of the two bur holes and resides overlying the left frontal parietal convexity. There has been i nterval decrease in volume of mixed density subdural hematoma, status post evacuation procedure, with a component of high density hematoma remaining, although decreased. Maximum thickness of subdural h ematoma is approximately 1 cm. The degree of rightward subfalcine herniation has decreased, approxim ately 3 mm, at the level of the septum pellucidum, currently. There is new, small extraaxial density overlying the right cerebral convexity, both anteriorly and posteriorly, without significant resulta nt mass effect. This may relate to a collection of newly developed mild subdural hematoma. IMPRESSION: 1. Status post bur hole formation and subdural drainage placement with reduced volume of previously documented mixed density left subdural hematoma. 2. Newly developed small volume extraaxial density overlying the right convexity, both anteriorly an d posteriorly, suggestive of a small interval extraaxial hematoma. Recommend continued short-term im aging followup. POS: LILLY
[2019-01-14] MEDS ORDERED: Donepezil HCl 5 MG TAB PO SCH (10:00)
[2019-01-14] MEDS ORDERED: Amiodarone 200 MG TAB PO SCH (10:00)
--- NOTE | 2019-01-14 10:42 | PRG ---
DATE OF SERVICE: 01/14/2019 SERVICE: Pulmonary Medicine. INTERVAL HISTORY: The patient is doing really well from respiratory standpoint. Denies any current chest pain, cough, nausea, vomiting, fevers, or chills. Her blood pressures are under good control. Her subdural drain did not put out anything yesterday, and it was removed this morning. She has no complaints of headaches, nausea, or vomiting. Neurologically, the patient's [id number] suggests she is at baseline. PHYSICAL EXAMINATION: VITAL SIGNS: Afebrile, pulse 64, blood pressure 176/87, respirations 16, saturation 95% on room air. GENERAL: The patient is awake and alert, in no apparent distress. LUNGS: Excellent air entry. No prolonged expiratory phase, wheezing, crackles , or rhonchi. HEART: Normal rate, regular. ABDOMEN: Soft, nontender, and nondistended. Bowel sounds are positive. MUSCULOSKELETAL: No cyanosis or clubbing. No pitting in the bilateral lower extremities. NEUROLOGIC: Grossly nonfocal. LABORATORY DATA: CBC is essentially unremarkable with a hemoglobin of 12. Basic metabolic profile is also unremarkable. INR 1.0. IMAGING DATA: CT of the brain demonstrates subdural drain with reduced volume of mixed density left subdural hematoma. Small extra-axial hematoma is possible, consistent with postoperative findings. ASSESSMENT: 1. Encephalopathy, resolved. 2. Subdural hematoma on the left, status post evacuation. 3. Atrial fibrillation, paroxysmal. DISCUSSION AND PLAN: I will resume the patient's Aricept and amiodarone. She is tolerating p.o. just fine, so IV fluids will be interrupted. At this point, she is stable for transition out of the ICU to the surgical unit. I will sign off. Please call with additional questions or concerns through time. Job ID: [id number] MTDD
--- NOTE | 2019-01-14 14:50 | PDOC.PN ---
- Subjective Encounter Start Date: 01/14/19 Encounter Start Time: 14:48 Subjective: feels good. no more speech impediment or any new complaints -: eager to go home.does not want rehab - Objective Resuscitation Status - Order Detail: 01/13/19 14:51 Resuscitation Status Routine Resuscitation Status: FULL: Full Resuscitation MAR Reviewed: Yes Vital Signs & Weight: Vital Signs (12 hours) Temp Pulse Resp BP Pulse Ox 01/14/19 11:39 97.8 F 76 14 131/78 100 01/14/19 09:45 97.7 F 83 16 125/70 98 01/14/19 07:00 98.0 F 01/14/19 04:00 98.0 F Weight Weight 145 lb 8.081 oz Most Recent Monitor Data Heart Rate from ECG 75 NIBP 116/59 NIBP BP-Mean 78 Respiration from ECG 15 SpO2 98 I&O: 01/13/19 01/14/19 01/15/19 06:59 06:59 06:59 Intake Total 255 1752 807 Output Total 450 1050 Balance -195 702 807 Result Diagrams: 01/13/19 01:54 01/14/19 04:29 Phys Exam - Physical Examination Constitutional: NAD sitting up in chair, HEENT: PERRLA, moist MMs, sclera anicteric, TM's clear, oral pharynx no lesions , 2+ tonsils [place] left scalp w/o discharge/dehiscence Neck: no nodes, no JVD, supple, full ROM Respiratory: no wheezing, no rales, no rhonchi, clear to auscultation bilateral Cardiovascular: RRR, no significant murmur Gastrointestinal: soft, non-tender, no distention, positive bowel sounds Musculoskeletal: no edema, pulses present Neurological: non-focal, normal sensation, moves all 4 limbs Psychiatric: normal affect, A&O x 3 Skin: no rash Dx/Plan (1) SDH (subdural hematoma) Code(s): S06.5X9A - TRAUM SUBDR HEM W LOC OF UNSP DURATION, INIT Status: Acute Comment: s/p gerald hole evacuation & DAVID drian which was removed today.NS primary (2) Pacemaker Code(s): Z95.0 - PRESENCE OF CARDIAC PACEMAKER Status: Chronic (3) HTN (hypertension) Code(s): I10 - ESSENTIAL (PRIMARY) HYPERTENSION Status: Chronic Comment: controlled. restart Benazapril.cont to hold HCTZ for now (4) Atrial fibrillation Code(s): I48.91 - UNSPECIFIED ATRIAL FIBRILLATION Status: Chronic Comment: Restart Amiodarone (5) Atrial myxoma Code(s): D15.1 - BENIGN NEOPLASM OF HEART Status: Chronic Comment: post resection (6) Dementia Code(s): F03.90 - UNSPECIFIED DEMENTIA WITHOUT BEHAVIORAL DISTURBANCE Status: Chronic Comment: Very mild. Normal conversation. will restart Aricept - Plan DVT proph w/SCDs HD stable -: IM team will follow -: am labs * . Review of Systems - Review of Systems Constitutional: negative: fever, chills, sweats, weakness, malaise, other ENT: negative: Ear Pain, Ear Discharge, Nose Pain, Nose Discharge, Nose Congestion, Mouth Pain, Mouth Swelling, Throat Pain, Throat Swelling, Other Respiratory: negative: Cough, Dry, Shortness of Breath, Hemoptysis, SOB with Excertion, Pleuritic Pain, Sputum, Wheezing Cardiovascular: negative: chest pain, palpitations, orthopnea, paroxysmal nocturnal dyspnea, edema, light headedness, other Gastrointestinal: negative: Nausea, Vomiting, Abdominal Pain, Diarrhea, Constipation, Melena, Hematochezia, Other Genitourinary: negative: Dysuria, Frequency, Incontinence, Hematuria, Retention , Other Musculoskeletal: negative: Neck Pain, Shoulder Pain, Arm Pain, Back Pain, Hand Pain, Leg Pain, Foot Pain, Other Neurological: negative: Weakness, Numbness, Incoordination, Change in Speech, Confusion, Seizures, Other - Medications/Allergies Allergies/Adverse Reactions: Allergies Allergy/AdvReac Type Severity Reaction Status Date / Time Penicillins Allergy Verified 01/13/19 00:33 Medications: Current Medications Acetaminophen (Tylenol) 650 mg PO Q4H PRN PRN Reason: Headache/Fever or Mild Pain Acetaminophen (Tylenol) 650 mg UT Q4H PRN PRN Reason: Headache/Fever or Pain1-3 Amiodarone HCl (Cordarone) 200 mg PO DAILY [facility] Benazepril HCl (Lotensin) 20 mg PO DAILY [facility] Clonidine (Catapres) 0.1 mg PO Q8H PRN PRN Reason: SBP >170 Donepezil HCl (Aricept) 5 mg PO DAILY [facility] Famotidine (Pepcid) 20 mg SLOW IVP 2100 DANY Hydralazine HCl (Apresoline) 5 mg SLOW IVP Q15MIN PRN PRN Reason: SBP >170 Nicardipine HCl 25 mg/ Sodium (Chloride) 250 mls @ 0 mls/hr IVPB INF PRN; Protocol PRN Reason: SBP > 150 or DBP > 90 Labetalol HCl (Labetalol Hcl) 10 mg SLOW IVP Q15MIN PRN PRN Reason: SBP >170 Morphine Sulfate (Morphine) 4 mg SLOW IVP Q1H PRN PRN Reason: SEVERE BREAKTHROUGH PAIN Morphine Sulfate (Morphine) 2 mg SLOW IVP Q1H PRN PRN Reason: FOR MOD BREAKTHROUGH PAIN Ondansetron HCl (Zofran) 4 mg SLOW IVP Q8H PRN PRN Reason: Nausea/Vomiting Ropinirole HCl (Requip) 1 mg PO BID DANY Sodium Chloride (Flush - Normal Saline) 10 ml IVF PRN PRN PRN Reason: Saline Flush
[2019-01-14] MEDS: rOPINIRole HCl 1 MG TAB PO SCH (20:18)
[2019-01-14] MEDS ORDERED: Famotidine/PF 20 mg/2ml Vial SLOW IVP SCH (21:00)
[2019-01-15] MEDS ORDERED: Donepezil HCl 5 MG TAB PO SCH (09:00)
[2019-01-15] MEDS ORDERED: Amiodarone 200 MG TAB PO SCH (09:00)
[2019-01-15] MEDS: rOPINIRole HCl 1 MG TAB PO SCH (10:17)
[2019-01-15 10:23] LABS: Anion Gap 11 mmol/L (10-20); BUN (Urea Nitrogen) 22 mg/dL (9.8-20.1); Calc. Creatinine Clearance 63 mL/min (70-130); Calcium 9.4 mg/dL (7.8-10.44); Carbon Dioxide 28 mmol/L (23-31); Chloride 105 mmol/L (98-107); Estimated GFR-MDRD 65; Glucose 87 mg/dL (83-110); Potassium 3.2 mmol/L (3.5-5.1); Sodium 141 mmol/L (136-145)
[2019-01-15 11:52] LABS: #Eosinphils 0.1 thou/uL (0.0-0.7); #Lymphocytes 1.2 thou/uL (1.20-3.40); #Monocytes 0.5 thou/uL (0.11-0.59); #Neutrophils 4.9 thou/uL (1.40-6.50); %Basophils 0.1 % (0.0-1.0); %Eosinophils 0.9 % (0.0-10.0); %Lymphocytes 17.8 % (21.0-51.0); %Monocytes 7.3 % (0.0-10.0); %Neutrophils 73.9 % (42.0-75.0); Hemoglobin 12.1 g/dL (12.0-16.0); Mean Corpuscular HGB CONC 34.1 g/dL (32.0-36.0); Mean Corpuscular Hemoglobin 31.7 pg (27.0-31.0); Mean Platelet Volume 7.5 fL (7.4-10.4); Platelet Count 198 thou/uL (130-400); RBC Distribution Width 11.3 % (11.5-14.5); White Blood Cell (WBC) Count 6.7 thou/uL (4.8-10.8)
[2019-01-15 12:00] VITALS: BP 146/73; TEMP 97.5
== END 2019-01-15 13:54 | disposition home or self-care (01) | DRG 25 ==
LOC: CCU 01-13 00:04 → SURG A 01-14 09:52
PROVIDERS: ADMIT Neurological Surgery; ATTEND Neurological Surgery
PROC: 00C43ZZ Extirpation of Matter from Intracranial Subdural Space, Percutaneous Approach (ICD-10-PCS; principal; 2019-01-13)
DX: I62.01 Nontraumatic acute subdural hemorrhage (principal); G93.5 Compression of brain; G93.40 Encephalopathy, unspecified; I62.03 Nontraumatic chronic subdural hemorrhage; I10 Essential (primary) hypertension; E78.5 Hyperlipidemia, unspecified; G30.0 Alzheimer's disease with early onset; F02.80 Dementia in other diseases classified elsewhere, unspecified severity, without behavioral disturbance, psychotic disturbance, mood disturbance, and anxiety; G25.81 Restless legs syndrome; I25.10 Atherosclerotic heart disease of native coronary artery without angina pectoris; I48.0 Paroxysmal atrial fibrillation; Z90.710 Acquired absence of both cervix and uterus; Z90.49 Acquired absence of other specified parts of digestive tract; Z95.1 Presence of aortocoronary bypass graft; Z88.0 Allergy status to penicillin; Z79.899 Other long term (current) drug therapy
CPT/HCPCS: 36415; 70450; 80048; 85025; 85610; 85730; 93005; 93010; J0131; J0670; J0690; J1100; J2001; J2310; J2370; J2405; J2704; J2765; J3010; J7050; S0028

== ENCOUNTER 2019-02-04 13:02 | Outpatient (CLI) | payer MEDICARE, OTHER ==
--- NOTE | 2019-02-04 13:46 | CT ---
CT BRAIN NONCONTRAST: DATE: 02/04/19 HISTORY: 73-year-old female, follow-up subdural hematoma. COMPARISON: 01/14/19. FINDINGS: Again noted are the two left upper bur holes. The previously demonstrated left subdural surgical drai n has been removed. The previously demonstrated Left frontal parietal subdural hematoma has changed characteristics. There is no longer any subdural air, and this is probably responsible to the overall slight interval decrease in size of the subdural collection (previously approximately 12 mm oblique transverse thickness measured on axial image 15 o f 32, series 3; currently 9 mm thickness axial image 14 of 32, series 3). However, the subdural hemat ernesto has become diffusely heterogeneously more dense (intermediate density superimposed on moderately low density). The previously mentioned very thin acute extra-axial hematoma over the right frontal cerebral convexi ty, is no longer visualized. No mass effect or midline shift. No obstructive hydrocephalus. No intra- axial hemorrhage. Ex vacuo dilation of temporal horn and trigone of left lateral ventricle is again n oted. IMPRESSION: 1. Interval removal of left subdural drainage catheter. 2. Interval resolution of the left pneumocephalus. This is responsible for the apparent slight i nterval decreased in volume of the left subdural hematoma collection. 3. However, there has been more recent subacute hemorrhage into the left subdural hematoma, sinc e the previous CT. 4. No significant mass effect. 5. Interval resolution of the very small, previously acute, right upper frontal extra-axial csar elías. MEGGAN Hankins POS: [facility]
== END 2019-02-04 13:03 | disposition home or self-care (01) ==
LOC: TBSIIMAG 13:02
PROVIDERS: ATTEND Neurological Surgery
DX: I62.00 Nontraumatic subdural hemorrhage, unspecified (principal); G93.89 Other specified disorders of brain; I61.8 Other nontraumatic intracerebral hemorrhage
CPT/HCPCS: 70450